=== PATIENT | female | born 1940 | race Caucasian/White ===

== ENCOUNTER 2016-08-07 01:33 | Emergency (ER) | payer MEDICARE, BC ==
[2016-08-07] MEDS ORDERED: Sodium Chloride 0.9% 10 ML Syringe FLUSH PRN (01:46)
[2016-08-07] MEDS ORDERED: Sodium Chloride 0.9% 1,000 ML IV ONE (01:46)
[2016-08-07] MEDS ORDERED: Albuterol/Ipratropium 3.0-0.5 MG/3 ML Neb Soln NEB ONE (02:08)
[2016-08-07] MEDS ORDERED: methylPREDNISolone Sodium Succinate 125 MG/2 ML SDV IVPUSH ONE (02:09)
--- NOTE | 2016-08-07 02:16 | EDM.PDOC ---
ED HPI GENERAL MEDICAL PROBLEM - General Chief Complaint: Respiratory Problem Stated Complaint: Dyspnea, Respiratory distress Time Seen by Provider: 08/07/16 01:44 Source of Information: Reports: Patient, EMS Notes Reviewed, Family, RN, RN Notes Reviewed History Limitations: Reports: No Limitations - History of Present Illness INITIAL COMMENTS - FREE TEXT/NARRATIVE: Patient is brought to the ED at [facility] via EMS for worsening SOB. Patient states her symptoms started earlier today. She did try nebs at home and hour ago without and improvement of her SOB. EMS was then called. Upon arrival, patient was very tachypnic and had oxygen saturations around 77%. BiPAP was started per EMS, which improved her oxygen levels. Patient has a long standing history of CHF and COPD with episode of acute respiratory failure due to hypercapnea. Unknown when her most recent event occurred. Patient currently denies any chest pain. No focal neurological deficits. Patient states she feels nauseated off/on. No vomiting or diarrhea. No recent URI. No fevers or chills. Onset: Today, Gradual Onset Date: 08/07/16 Treatments ACCOUNTING ADVISORY SERVICES MANAGER: Reports: See EMS Report, Other (see below) Other Treatments ACCOUNTING ADVISORY SERVICES MANAGER: duonebs - Related Data Allergies Allergy/AdvReac Type Severity Reaction Status Date / Time amoxicillin Allergy Cannot Verified 08/07/16 02:11 Remember codeine AdvReac Renal Verified 08/07/16 02:11 Insufficiency naproxen AdvReac Renal Verified 08/07/16 02:11 Failure amoxicillin Allergy Cannot Uncoded 08/07/16 02:11 Remember Home Meds: Home Meds Clopidogrel Bisulfate [Clopidogrel] 75 mg PO DAILY 10/16/13 [History] Febuxostat [Uloric] 40 mg PO DAILY 10/16/13 [History] Pantoprazole Sodium 40 mg PO DAILY 10/16/13 [History] Methyl Salicylate/Menthol [Muscle Rub Cream] 1 applic TOP ASDIRECTED PRN [History] Nystatin 1 applic TOP BID 04/25/14 [History] Cetirizine [ZyrTEC] 10 mg PO DAILY 02/05/15 [History] Potassium Chloride 20 meq PO DAILY 02/14/15 [History] Acetaminophen [Tylenol] 650 mg PO Q4H PRN #0 tablet 02/27/15 [Rx] Hydroxychloroquine [Plaquenil] 400 mg PO DAILY tablet 02/27/15 [Rx] Levothyroxine 75 mcg PO ACBREAKFAST tablet 02/27/15 [Rx] Nitroglycerin [Nitrostat] 0.4 mg SL ASDIRECTED PRN #0 tab.sl 02/27/15 [Rx] Sertraline [Zoloft] 100 mg PO DAILY tablet 02/27/15 [Rx] Albuterol [Proventil HFA] 2 inh INH Q6H PRN 08/09/15 [History] Albuterol/Ipratropium [DuoNeb 3.0-0.5 MG/3 ML] 3 ml INH Q4H PRN 08/09/15 [ History] Albuterol/Ipratropium [DuoNeb 3.0-0.5 MG/3 ML] 3 ml INH QID 08/09/15 [History] Aspirin [Halfprin] 81 mg PO DAILY 08/09/15 [History] Budesonide [Pulmicort] 0.5 mg INH BID 08/09/15 [History] Cholecalciferol (Vitamin D3) [Vitamin D3] 2,000 unit PO DAILY 08/09/15 [History] Digoxin 125 mcg PO Q48H 08/09/15 [History] Docusate Sodium/Sennosides [Senna Plus] 2 tab PO BID 08/09/15 [History] Fluticasone Propionate [Flonase] 2 sprays NASBOTH BID 08/09/15 [History] Furosemide 60 mg PO BIDDIURETIC 08/09/15 [History] Insulin Glarg,Human.Rec.Analog [LantUS Solostar] 15 units SQ Q12H 08/09/15 [ History] Iron Aspgly&PS/B12/C/Ca/FA/Suc [Niferex-150 Forte] 1 cap PO DAILY 08/09/15 [ History] Nystatin/Triamcin [Nystatin-Triamcinolone Cream] 1 applic TOP BID 08/09/15 [ History] oxyCODONE 5 mg PO Q6H PRN 08/09/15 [History] rOPINIRole [Requip] 0.25 mg PO TID 08/09/15 [History] Acetaminophen [Tylenol] 650 mg PO Q6H PRN #0 tablet 08/30/15 [Rx] Benzocaine/Cetylpyrd/Menthol [Cepacol Sore Throat] 1 lozenge MUCMEM Q4HR PRN #0 aimee 08/30/15 [Rx] Diltiazem [Cardizem CD] 120 mg PO DAILY #30 cap.cd 08/30/15 [Rx] Menthol/Methyl Salicylate [Icy Hot Cream] 85 gm TOP QID PRN #0 tube 08/30/15 [Rx ] Polyethylene Glycol 3350 [MiraLAX] 17 gm PO DAILY PRN #0 packet 08/30/15 [Rx] oxyCODONE 5 mg PO Q6H PRN #120 tablet 08/30/15 [Rx] Past Medical History HEENT History: Reports: Hard of Hearing, Sinusitis, Other (See Below) Other HEENT History: dysphagia Cardiovascular History: Reports: Arrhythmia, CAD, Heart Failure, High Cholesterol, Hypertension, OR Respiratory History: Reports: COPD, Sleep Apnea, SOB Gastrointestinal History: Reports: GERD, GI Bleed Genitourinary History: Reports: Renal Disease 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: Musculoskeletal History: Reports: Arthritis, Fracture, Gout Other Musculoskeletal History: HX FX b ankles Neurological History: Reports: Migraines Psychiatric History: Reports: Anxiety, Depression Endocrine/Metabolic History: Reports: Diabetes, Type II, Hypothyroidism, Obesity /BMI 30+ Hematologic History: Reports: Anemia, Bleeding Disorder Dermatologic History: Reports: Eczema Other Dermatologic History: posterior lower head - Past Surgical History Cardiovascular Surgical History: Reports: Coronary Artery Stent Social & Family History - Family History Family Medical History: Noncontributory HEENT: Reports: None Cardiac: Reports: None Musculoskeletal: Reports: Arthritis Endocrine/Metabolic: Reports: Diabetes, Type I Hematologic: Reports: None Immunologic: Reports: None Oncologic: Reports: Lung - Tobacco Use Smoking Status *Q: Former Smoker Years of Tobacco use: 10 Packs/Tins Daily: 1.5 Used Tobacco, but Quit: No Month Tobacco Last Used: 0 Second Hand Smoke Exposure: No - Caffeine Use Caffeine Use: Reports: Coffee - Alcohol Use Days Per Week of Alcohol Use: 0 - Recreational Drug Use Recreational Drug Use: No ED ROS GENERAL - Review of Systems Review Of Systems: See Below Constitutional: Denies: Fever, Chills, Weakness HEENT: Reports: No Symptoms Respiratory: Reports: Shortness of Breath. Denies: Cough, Sputum Cardiovascular: Reports: Dyspnea on Exertion, Edema, Lightheadedness, Orthopnea. Denies: Chest Pain GI/Abdominal: Reports: Nausea. Denies: Abdominal Pain, Diarrhea, Vomiting Skin: Reports: No Symptoms Neurological: Reports: No Symptoms. Denies: Dizziness, Headache, Numbness, Paresthesia, Tingling ED EXAM, GENERAL - Physical Exam Exam: See Below Exam Limited By: No Limitations General Appearance: Alert, Moderate Distress, Obese Head: Atraumatic, Normocephalic Neck: Supple Respiratory/Chest: Decreased Breath Sounds Cardiovascular: Tachycardia, Other (+3 bilateral lower extremity edema; distant heart tones) Peripheral Pulses: 2+: Radial (L), Radial (R) GI/Abdominal: Soft, Non-Tender, Abnormal Bowel Sounds (Hypoactive) Extremities: Pedal Edema (bilateral +3) Neurological: Alert, Oriented Skin Exam: Warm, Dry, Intact, Normal Color, No Rash EKG INTERPRETATION EKG Date: 08/07/16 Time: 02:35 Rhythm: A-Fib Rate (Beats/Min): 117 [place]: Normal P-Wave: Absent QRS: Normal ST-T: Normal QT: Normal DC/PQ Interval: Absent Comparison: Change From Previous EKG EKG Interpretation Comments: 1. Atrial Fibrillation with rapid ventricular response 2. Low QRS voltage in precordial leads 3. Possible anterior OR, probably old Course - Vital Signs Last Recorded V/S: Last Vital Signs Temp 36.6 C 08/07/16 01:45 Pulse 124 H 08/07/16 02:00 Resp 21 H 08/07/16 03:00 BP 117/61 08/07/16 02:44 Pulse Ox 98 08/07/16 03:00 - Orders/Labs/Meds Orders: Active Orders 24 hr Category Date Time Status EKG 12 Lead [EKG Documentation Completion] [RC] STAT Care 08/07/16 01:47 Active RT Aerosol Therapy [RC] ASDIRECTED Care 08/07/16 02:08 Active Chest 1V Frontal [CR] Stat Exams 08/07/16 01:45 Taken Diltiazem Med 08/07/16 03:19 Once 5 mg IVPUSH ONETIME ONE Furosemide [Lasix] Med 08/07/16 03:19 Once 20 mg IVPUSH NOW ONE Sodium Chloride 0.9% [Saline Flush] Med 08/07/16 01:46 Active 10 ml FLUSH ASDIRECTED PRN Peripheral IV Insertion Adult [OM.PC] Routine Oth 08/07/16 01:46 Ordered Medication Orders Diltiazem HCl (Diltiazem) 5 mg IVPUSH ONETIME ONE Stop: 08/07/16 03:20 Sodium Chloride (Saline Flush) 10 ml FLUSH ASDIRECTED PRN PRN Reason: Keep Vein Open Labs: Laboratory Tests 08/07/16 08/07/16 08/07/16 Range/Units 01:59 01:59 01:59 WBC 5.6 (4.0-10.0) x10^3/uL RBC 3.44 L (4.00-5.50) x10^6/uL Hgb 9.9 L (12.0-16.0) g/dL Hct 33.3 (33.0-47.0) % MCV 96.8 H D (78.0-93.0) fL MCH 28.8 (26.0-32.0) pg MCHC 29.7 L (32.0-36.0) g/dL RDW Coeff of Srinivasan 16.7 H (10.0-15.0) % Plt Count 154 (130-400) x10^3/uL Add Manual Diff Yes Neutrophils % (Manual) 72 (50-80) % Band Neutrophils % 1 (0-6) % Lymphocytes % (Manual) 14 L (25-50) % Monocytes % (Manual) 10 (2-11) % Eosinophils % (Manual) 3 (0-4) % Platelet Estimate Adequate Polychromasia Rare Anisocytosis 2+ moderate H Macrocytosis 1+ slight H Spherocytes Rare Ovalocytes 1+ slight H POC ABG pH (7.35-7.45) POC ABG pCO2 (35-45) mmHG POC ABG pO2 (80-105) mmHG POC ABG HCO3 (22-26) mmol/L POC ABG Total CO2 (23-27) mmol/L POC ABG O2 Sat (95-98) % POC ABG Base Excess (-2-3) mmol/L POC FiO2 Sodium 142 (136-145) mmol/L Potassium 4.3 (3.5-5.1) mmol/L Chloride 98 (98-107) mmol/L Carbon Dioxide 42 H (21-32) mmol/L BUN 51 H (7-18) mg/dL Creatinine 2.9 H (0.55-1.02) mg/dL Est Cr Clr Drug Dosing TNP Estimated GFR (MDRD) 16 Glucose 182 H (74-106) mg/dL Lactic Acid 0.9 (0.4-2.0) mmol/L Calcium 8.6 (8.5-10.1) mg/dL Phosphorus 4.6 (2.6-4.7) mg/dL Magnesium 1.8 (1.8-2.4) mg/dL Creatine Kinase 99 (26-192) U/L Creatine Kinase Index 2.2 (0.0-4.0) % CK-MB (CK-2) 2.2 (0.0-3.6) ng/mL Troponin I < 0.017 (<=0.056) ng/mL B-Natriuretic Peptide 1759 H (<=450) pg/mL POC Result Comm 08/07/16 Range/Units 02:48 WBC (4.0-10.0) x10^3/uL RBC (4.00-5.50) x10^6/uL Hgb (12.0-16.0) g/dL Hct (33.0-47.0) % MCV (78.0-93.0) fL MCH (26.0-32.0) pg MCHC (32.0-36.0) g/dL RDW Coeff of Srinivasan (10.0-15.0) % Plt Count (130-400) x10^3/uL Add Manual Diff Neutrophils % (Manual) (50-80) % Band Neutrophils % (0-6) % Lymphocytes % (Manual) (25-50) % Monocytes % (Manual) (2-11) % Eosinophils % (Manual) (0-4) % Platelet Estimate Polychromasia Anisocytosis Macrocytosis Spherocytes Ovalocytes POC ABG pH 7.404 (7.35-7.45) POC ABG pCO2 70 H* (35-45) mmHG POC ABG pO2 150 H (80-105) mmHG POC ABG HCO3 44 H (22-26) mmol/L POC ABG Total CO2 46 H (23-27) mmol/L POC ABG O2 Sat 99 H (95-98) % POC ABG Base Excess 19 H (-2-3) mmol/L POC FiO2 0.60 Sodium (136-145) mmol/L Potassium (3.5-5.1) mmol/L Chloride (98-107) mmol/L Carbon Dioxide (21-32) mmol/L BUN (7-18) mg/dL Creatinine (0.55-1.02) mg/dL Est Cr Clr Drug Dosing Estimated GFR (MDRD) Glucose (74-106) mg/dL Lactic Acid (0.4-2.0) mmol/L Calcium (8.5-10.1) mg/dL Phosphorus (2.6-4.7) mg/dL Magnesium (1.8-2.4) mg/dL Creatine Kinase (26-192) U/L Creatine Kinase Index (0.0-4.0) % CK-MB (CK-2) (0.0-3.6) ng/mL Troponin I (<=0.056) ng/mL B-Natriuretic Peptide (<=450) pg/mL POC Result Comm Called critical res Meds: Medications Generic Name Dose Route Start Last Admin Trade Name Freq PRN Reason Stop Dose Admin Diltiazem HCl 5 mg 08/07/16 03:19 Diltiazem IVPUSH 08/07/16 03:20 ONETIME ONE Sodium Chloride 10 ml 08/07/16 01:46 Saline Flush FLUSH ASDIRECTED PRN Keep Vein Open Discontinued Medications Generic Name Dose Route Start Last Admin Trade Name Freq PRN Reason Stop Dose Admin Albuterol/Ipratropium 3 ml 08/07/16 02:08 08/07/16 02:17 Duoneb 3.0-0.5 Mg/3 Ml NEB 08/07/16 02:09 3 ml ONETIME ONE Administration Sodium Chloride 1,000 mls @ 999 mls/hr 08/07/16 01:46 08/07/16 02:25 Normal Saline IV 08/07/16 02:46 999 mls/hr ONETIME ONE Administration Methylprednisolone Sodium Succinate 125 mg 08/07/16 02:09 08/07/16 02:28 Solu-Medrol IVPUSH 08/07/16 02:10 125 mg ONETIME ONE Administration Departure - Departure Time of Disposition: 03:20 Disposition: DC/Tfer to Acute Hospital 02 Condition: Fair Clinical Impression: Hypoxia Respiratory failure with hypercapnia Qualifiers: Chronicity: acute on chronic Qualified Code(s): J96.22 - Acute and chronic respiratory failure with hypercapnia COPD (chronic obstructive pulmonary disease) Qualifiers: Chronic bronchitis type: unspecified - Discharge Information Forms: Interfacility Transfer [facility] ED Communication - ED Communication Date/Time Date: 08/07/16 Time Called: 03:08 - Discussed Case With (1) Discussed Case With (1): Admitting Provider (Dr. Whitney, Hospitalist) - Conversation Summary Admitting Provider Agreed to Patient's Admission: Yes Patient Aware of Amendments fo Care Plan: Yes Patient's POA/Guardian Aware of Amendments to Care Plan: Yes Summary Comment: Patient will be [facility]. Accepting provider is Dr. Whitney. Report given. All questions answered. - Problem List Review Problem List Initiated/Reviewed/Updated: Yes - My Orders Last 24 Hours: My Active Orders 08/07/16 01:45 Chest 1V Frontal [CR] Stat 08/07/16 01:46 Sodium Chloride 0.9% [Saline Flush] 10 ml FLUSH ASDIRECTED PRN Peripheral IV Insertion Adult [OM.PC] Routine 08/07/16 01:47 EKG 12 Lead [EKG Documentation Completion] [RC] STAT 08/07/16 02:08 RT Aerosol Therapy [RC] ASDIRECTED 08/07/16 03:19 Diltiazem 5 mg IVPUSH ONETIME ONE Furosemide [Lasix] 20 mg IVPUSH NOW ONE - Assessment/Plan Last 24 Hours: My Active Orders 08/07/16 01:45 Chest 1V Frontal [CR] Stat 08/07/16 01:46 Sodium Chloride 0.9% [Saline Flush] 10 ml FLUSH ASDIRECTED PRN Peripheral IV Insertion Adult [OM.PC] Routine 08/07/16 01:47 EKG 12 Lead [EKG Documentation Completion] [RC] STAT 08/07/16 02:08 RT Aerosol Therapy [RC] ASDIRECTED 08/07/16 03:19 Diltiazem 5 mg IVPUSH ONETIME ONE Furosemide [Lasix] 20 mg IVPUSH NOW ONE
[2016-08-07 02:44] LABS: CHLORIDE,CL 98 mmol/L (98-107); SODIUM,NA 142 mmol/L (136-145)
[2016-08-07 03:11] VITALS: BP 117/61
[2016-08-07] MEDS ORDERED: Furosemide 40 MG/4 ML VIAL IVPUSH ONE (03:19)
[2016-08-07] MEDS ORDERED: Diltiazem 25 MG/5 ML SDV IVPUSH ONE (03:19)
== END 2016-08-07 03:55 | disposition short-term general hospital (02) ==
LOC: VM.ED 01:33
DX: J96.22 Acute and chronic respiratory failure with hypercapnia (principal); J44.9 Chronic obstructive pulmonary disease, unspecified; I11.0 Hypertensive heart disease with heart failure; I50.9 Heart failure, unspecified; I25.10 Atherosclerotic heart disease of native coronary artery without angina pectoris; I25.2 Old myocardial infarction; E78.00 Pure hypercholesterolemia, unspecified; G47.30 Sleep apnea, unspecified; K21.9 Gastro-esophageal reflux disease without esophagitis; M19.90 Unspecified osteoarthritis, unspecified site; G43.909 Migraine, unspecified, not intractable, without status migrainosus; F41.9 Anxiety disorder, unspecified; F32.9 Major depressive disorder, single episode, unspecified; E11.9 Type 2 diabetes mellitus without complications; E03.9 Hypothyroidism, unspecified; Z95.5 Presence of coronary angioplasty implant and graft; Z87.891 Personal history of nicotine dependence; Z79.82 Long term (current) use of aspirin; Z79.02 Long term (current) use of antithrombotics/antiplatelets; Z79.4 Long term (current) use of insulin; Z79.899 Other long term (current) drug therapy; Z88.1 Allergy status to other antibiotic agents; Z88.5 Allergy status to narcotic agent; Z88.8 Allergy status to other drugs, medicaments and biological substances
CPT/HCPCS: 36415; 36600; 51702; 71010; 80048; 82550; 82553; 82803; 83605; 83735; 83880; 84100; 84484; 85025; 93005; 96365; 96375; 99285; J1940; J2930; J7030; 99284-GF; J3490

== ENCOUNTER 2016-08-13 10:13 | Inpatient (IN) | payer MEDICARE, BC ==
[2016-08-13] MEDS: Acetaminophen 325 MG Tab PO PRN ×3 (17:18→23:35)
[2016-08-13] MEDS: Insuln Aspart Prot/Insulin Aspart 100 Units/ML 3 ML FlexPen SUBCUT SCH (17:20)
[2016-08-13] MEDS: oxyCODONE 5 MG Tab PO PRN ×2 (19:29→23:32)
[2016-08-13] MEDS ORDERED: Albuterol 8 GM Inhaler INH PRN (22:54)
[2016-08-13] MEDS ORDERED: Nystatin Crm 30 GM Tube TOP PRN (22:54)
[2016-08-13] MEDS ORDERED: Nitroglycerin 0.4 MG Tab.SL SL PRN (22:54)
[2016-08-13] MEDS ORDERED: Menthol/Methyl Salicylate 85 GM Tube TOP PRN (22:54)
[2016-08-13] MEDS ORDERED: oxyCODONE 5 MG Tab PO PRN (23:01)
[2016-08-13] MEDS: Albuterol/Ipratropium 3.0-0.5 MG/3 ML Neb Soln NEB PRN (23:20)
[2016-08-13] MEDS: guaiFENesin 600 MG Tab.ER PO SCH (23:36)
[2016-08-13] MEDS: Fluticasone Propionate Nasal Spray 16 GM Bottle NASBOTH SCH (23:46)
[2016-08-13] MEDS: Betamethasone Dipropionate/Clotrimazole 0.05-1% Crm 15 GM Tube TOP SCH (23:47)
[2016-08-14] MEDS: Betamethasone Dipropionate/Clotrimazole 0.05-1% Crm 15 GM Tube TOP SCH ×4 (00:41→19:43)
[2016-08-14] MEDS: oxyCODONE 5 MG Tab PO PRN ×3 (04:37→14:52)
[2016-08-14] MEDS: Pantoprazole 40 MG Tab.CR PO SCH (06:13)
[2016-08-14] MEDS: Levothyroxine 75 MCG Tab PO SCH (06:13)
[2016-08-14] MEDS ORDERED: Albuterol/Ipratropium 3.0-0.5 MG/3 ML Neb Soln INH SCH (07:00)
[2016-08-14] MEDS ORDERED: Potassium Chloride 20 MEQ Tab.ER PO SCH (08:00)
[2016-08-14] MEDS ORDERED: Insuln Aspart Prot/Insulin Aspart 100 Units/ML 3 ML FlexPen SUBCUT SCH (08:00)
[2016-08-14] MEDS ORDERED: [UNRECOGNIZED DRUG - OTHER] PO SCH (08:00)
[2016-08-14] MEDS ORDERED: Hydroxychloroquine 200 MG Tab PO SCH (08:00)
[2016-08-14] MEDS ORDERED: rOPINIRole 0.5 MG Tab PO SCH (08:00)
[2016-08-14] MEDS ORDERED: Furosemide 40 MG Tab PO SCH (08:00)
[2016-08-14] MEDS ORDERED: Diltiazem 120 MG Cap.CD PO SCH (08:00)
[2016-08-14] MEDS ORDERED: MICONAZOLE 2% TOP PRN (09:30)
[2016-08-14] MEDS: Insuln Aspart Prot/Insulin Aspart 100 Units/ML 3 ML FlexPen SUBCUT SCH ×3 (09:47→18:12)
[2016-08-14] MEDS: guaiFENesin 600 MG Tab.ER PO SCH ×3 (09:47→19:43)
[2016-08-14] MEDS: Fluticasone Propionate Nasal Spray 16 GM Bottle NASBOTH SCH (09:47)
[2016-08-14] MEDS: Hydroxychloroquine 200 MG Tab PO SCH ×3 (10:38→19:43)
[2016-08-14] MEDS: Polyethylene Glycol 3350 Powder 17 GM Packet PO SCH (10:38)
[2016-08-14] MEDS: Torsemide 20 MG Tab PO SCH (10:38)
[2016-08-14] MEDS: Cholecalciferol (Vitamin D3) 1,000 Unit Tab PO SCH (10:38)
[2016-08-14] MEDS: Metoprolol Succinate 25 MG Tab.ER PO SCH (10:39)
[2016-08-14] MEDS: Digoxin 125 MCG Tab PO SCH (10:40)
[2016-08-14] MEDS: Aspirin 81 MG Tab.EC PO SCH (10:40)
[2016-08-14] MEDS: Iron Polysaccharides Complex 150 MG Cap PO SCH ×2 (10:40→11:33)
[2016-08-14] MEDS: Potassium Chloride 10 MEQ Tab.ER PO SCH (10:41)
[2016-08-14] MEDS: Sertraline 100 MG Tab PO SCH (10:41)
[2016-08-14] MEDS: Loratadine 10 MG Tab PO SCH (10:41)
[2016-08-14] MEDS: Clopidogrel 75 MG Tab PO SCH (10:41)
[2016-08-14] MEDS: rOPINIRole 0.5 MG Tab PO SCH ×2 (10:42→14:50)
[2016-08-14] MEDS ORDERED: Fluticasone Propionate Nasal Spray 16 GM Bottle NASBOTH SCH (12:15)
--- NOTE | 2016-08-14 12:54 | PCM.HP ---
H&P History of Present Illness - General Date of Service: 08/14/16 Admit Problem/Dx: Admission Diagnosis/Problem Admission Diagnosis/Problem CHF, Congestive heart failure Source of Information: Patient, Old Records - History of Present Illness Initial Comments - Free Text/Narative: 76-year-old female admitted to swing bed following an acute stay at [facility] for treatment of acute respiratory failure. Patient has known chronic respiratory failure with hypoxia. This acute exacerbation was thought secondary to her congestive heart failure and atrial fibrillation with rapid ventricular response. Bilateral Lower Leg Pain Score (Numeric/FACES): 4 - Related Data Allergies/Adverse Reactions: Allergies Allergy/AdvReac Type Severity Reaction Status Date / Time amoxicillin Allergy Cannot Verified 08/07/16 02:11 Remember codeine AdvReac Renal Verified 08/07/16 02:11 Insufficiency naproxen AdvReac Renal Verified 08/07/16 02:11 Failure amoxicillin Allergy Cannot Uncoded 08/07/16 02:11 Remember Home Medications: Home Meds Clopidogrel Bisulfate [Clopidogrel] 75 mg PO DAILY 10/16/13 [History] Pantoprazole Sodium 40 mg PO DAILY 10/16/13 [History] Methyl Salicylate/Menthol [Muscle Rub Cream] 1 applic TOP ASDIRECTED PRN [History] Nystatin 1 applic TOP BID PRN 04/25/14 [History] Potassium Chloride 10 meq PO DAILY 02/14/15 [History] Levothyroxine 75 mcg PO ACBREAKFAST tablet 02/27/15 [Rx] Nitroglycerin [Nitrostat] 0.4 mg SL ASDIRECTED PRN #0 tab.sl 02/27/15 [Rx] Sertraline [Zoloft] 100 mg PO DAILY tablet 02/27/15 [Rx] Aspirin [Halfprin] 81 mg PO DAILY 08/09/15 [History] Cholecalciferol (Vitamin D3) [Vitamin D3] 2,000 unit PO DAILY 08/09/15 [History] Digoxin 125 mcg PO DAILY 08/09/15 [History] Docusate Sodium/Sennosides [Senna Plus] 2 tab PO DAILY PRN 08/09/15 [History] oxyCODONE 10 mg PO Q4H PRN 08/09/15 [History] rOPINIRole [Requip] 0.5 mg PO BID@,08/09/15 [History] Acetaminophen [Tylenol] 650 mg PO Q4HR PRN 08/13/16 [History] Albuterol/Ipratropium [DuoNeb 3.0-0.5 MG/3 ML] 3 ml NEB Q4HR PRN 08/13/16 [ History] Calcium Carbonate [Tums] 500 mg PO TID PRN 08/13/16 [History] Clotrimazole/Betamethasone Dip [Lotrisone Cream] 1 applicful TP BID 08/13/16 [ History] Insuln Asp Prot/Insulin Aspart [NovoLOG Mix 70-30] 12 unit SUBCUT BIDMEALS 08/13 [History] Iron Aspgly&PS/B12/C/Ca/FA/Suc [Niferex-150 Forte] 1 cap PO DAILY 08/13/16 [ History] Loratadine [Claritin] 10 mg PO DAILY 08/13/16 [History] Metolazone [Zaroxolyn] 5 mg PO Q72H 08/13/16 [History] Metoprolol Succinate [Toprol XL] 25 mg PO DAILY 08/13/16 [History] Polyethylene Glycol 3350 [MiraLAX] 17 gm PO DAILY 08/13/16 [History] Carbidopa/Levodopa [Sinemet 25-100 mg Tablet] 1 each PO BEDTIME 08/14/16 [ History] Hydroxychloroquine Sulfate [Plaquenil] 200 mg PO TID 08/14/16 [History] Torsemide 20 mg PO DAILY 08/14/16 [History] Past Medical History HEENT History: Reports: Hard of Hearing, Sinusitis, Other (See Below) Other HEENT History: dysphagia Cardiovascular History: Reports: Afib, Arrhythmia, CAD, Heart Failure, High Cholesterol, Hypertension, [place], SOB on Exertion Respiratory History: Reports: COPD, Sleep Apnea, SOB Gastrointestinal History: Reports: GERD, GI Bleed Genitourinary History: Reports: Renal Disease 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: Musculoskeletal History: Reports: Arthritis, Fracture, Gout Other Musculoskeletal History: HX FX b ankles Neurological History: Reports: Migraines Psychiatric History: Reports: Anxiety, Depression Endocrine/Metabolic History: Reports: Diabetes, Type II, Hypothyroidism, Obesity /BMI 30+ Hematologic History: Reports: Anemia, Bleeding Disorder, Iron Deficiency Dermatologic History: Reports: Eczema, Psoriasis Other Dermatologic History: posterior lower head - Past Surgical History Cardiovascular Surgical History: Reports: Coronary Artery Stent Respiratory Surgical History: Reports: None GI Surgical History: Reports: None Musculoskeletal Surgical History: Reports: None Social & Family History - Family History Family Medical History: Noncontributory HEENT: Reports: None Cardiac: Reports: None Musculoskeletal: Reports: Arthritis Endocrine/Metabolic: Reports: Diabetes, Type I Hematologic: Reports: None Immunologic: Reports: None Oncologic: Reports: Lung - Tobacco Use Smoking Status *Q: Former Smoker Years of Tobacco use: 10 Packs/Tins Daily: 1.5 Used Tobacco, but Quit: Yes Month Tobacco Last Used: Second Hand Smoke Exposure: No - Caffeine Use Caffeine Use: Reports: Coffee - Alcohol Use Days Per Week of Alcohol Use: 0 - Recreational Drug Use Recreational Drug Use: No H&P Review of Systems - Review of Systems: Review Of Systems: See Below General: Denies: Fever, Chills HEENT: Reports: No Symptoms Pulmonary: Reports: Shortness of Breath. Denies: Cough, Hemoptysis Cardiovascular: Reports: Dyspnea on Exertion, Edema. Denies: Chest Pain Gastrointestinal: Denies: Abdominal Pain, Constipation, Diarrhea, Nausea, Vomiting Genitourinary: Denies: Dysuria Musculoskeletal: Reports: Neck Pain, Back Pain, Joint Pain Skin: Denies: Rash Psychiatric: Reports: No Symptoms Neurological: Reports: No Symptoms Hematologic/Lymphatic: Reports: No Symptoms Immunologic: Reports: No Symptoms Exam - Exam Exam: See Below - Vital Signs Vital Signs: Last Vital Signs Temp 36.4 C 08/14/16 10:00 Pulse 100 08/14/16 10:39 Resp 20 08/14/16 10:00 BP 104/46 L 08/14/16 10:39 Pulse Ox 92 L 08/14/16 10:00 Weight: 110.132 kg - Exam Quality Assessment: Supplemental Oxygen General: Alert, Oriented HEENT: Conjunctiva Clear, Mucosa Moist & Sundown Neck: Supple Lungs: Decreased Breath Sounds, Rhonchi Cardiovascular: Irregular Rhythm Abdomen: Normal Bowel Sounds, Soft Skin: Warm, Dry Neurological: Cranial Nerves Intact Neuro Extensive - Mental Status: Alert, Disorientation to Person Neuro Extensive - Motor, Sensory, Reflexes: CN II-XII Intact Psychiatric: Alert, Normal Affect - Patient Data Lab Results Last 24 hrs: Laboratory Results - last 24 hr 08/13/16 08/14/16 Range/Units 17:16 06:16 POC Glucose 129 H 110 H (74-106) mg/dL *Q Meaningful Use (ADM) - VTE *Q VTE Criteria *Q: - Stroke *Q Stroke Criteria *Q: - AMI *Q AMI Criteria *Q: - Problem List (1) Respiratory failure with hypercapnia SNOMED Code(s): 868248733 ICD Code: J96.92 - RESPIRATORY FAILURE, UNSPECIFIED WITH HYPERCAPNIA Status : Chronic Current Visit: No Qualifiers: Chronicity: acute on chronic Qualified Code(s): J96.22 - Acute and chronic respiratory failure with hypercapnia (2) A-fib SNOMED Code(s): 96881438 ICD Code: I48.91 - UNSPECIFIED ATRIAL FIBRILLATION Status: Chronic Current Visit: No Qualifiers: Atrial fibrillation type: chronic Qualified Code(s): I48.2 - Chronic atrial fibrillation (3) CHF (congestive heart failure) SNOMED Code(s): 58133057 ICD Code: I50.9 - HEART FAILURE, UNSPECIFIED Status: Chronic Current Visit: No Qualifiers: Congestive heart failure type: diastolic Congestive heart failure chronicity: chronic Qualified Code(s): I50.32 - Chronic diastolic (congestive ) heart failure (4) COPD (chronic obstructive pulmonary disease) SNOMED Code(s): 15595237 ICD Code: J44.9 - CHRONIC OBSTRUCTIVE PULMONARY DISEASE, UNSPECIFIED Status : Chronic Priority: High Current Visit: No Problem List Initiated/Reviewed/Updated: Yes Orders Last 24hrs: Active Orders 24 hr Category Date Time Status Admission Status [Patient Status] [ADT] Routine ADT 08/13/16 14:18 Active Accu Check [Blood Glucose Check, Bedside] [RC] 17 Care 08/13/16 16:47 Active Oxygen Therapy Adult [Oxygen Therapy, ED] [RC] .PRN Care 08/13/16 16:01 Active RT Aerosol Therapy [RC] .PRN Care 08/13/16 16:10 Active Consult to Occupational Therapy [OT Evaluation and Cons 08/13/16 16:02 Active Treatment] [CONS] Routine Consult to Physical Therapy [PT Evaluation and Cons 08/13/16 16:01 Active Treatment] [CONS] Routine 2 Gram Sodium Diet [DIET] Diet 08/13/16 Dinner Active [employer] Diet [DIET] Diet 08/13/16 Dinner Active Acetaminophen [Tylenol] Med 08/13/16 22:54 Active 650 mg PO Q4HR PRN Albuterol/Ipratropium [DuoNeb 3.0-0.5 MG/3 ML] Med 08/13/16 16:05 Active 3 ml NEB Q4HRRT PRN Aspirin [Halfprin] Med 08/14/16 08:00 Active 81 mg PO DAILY Betamethasone/Clotrimazole [Lotrisone] Med 08/13/16 23:00 Active 0 gm TOP BID Calcium Carbonate [Tums Extra Strength] Med 08/13/16 22:54 Active 750 mg PO TID PRN Carbidopa/Levodopa [Sinemet 25-100 mg] Med 08/14/16 20:00 Active 1 tab PO BEDTIME Cholecalciferol (Vitamin D3) [Vitamin D3] Med 08/14/16 08:00 Active 2,000 units PO DAILY Clopidogrel [Plavix] Med 08/14/16 08:00 Active 75 mg PO DAILY Digoxin [Lanoxin] Med 08/14/16 08:00 Active 125 mcg PO DAILY Docusate Sodium/Sennosides [Senna Plus] Med 08/14/16 08:45 Active 2 tab PO DAILY PRN Febuxostat [Uloric] Med 08/14/16 08:00 Pending 40 mg PO DAILY Fluticasone Propionate [Flonase] Med 08/14/16 12:15 Active 0 gm NASBOTH DAILY Hydroxychloroquine [Plaquenil] Med 08/14/16 09:15 Active 200 mg PO TID Insuln Asp Prot/Insulin Aspart [NovoLOG Mix 70-30] Med 08/14/16 18:00 Active 12 unit SUBCUT BIDMEALS Iron Polysaccharides Complex [Ferrex 150] Med 08/14/16 12:00 Active 150 mg PO DAILY Levothyroxine Med 08/14/16 07:00 Active 75 mcg PO ACBREAKFAST Loratadine [Claritin] Med 08/14/16 08:00 Active 10 mg PO DAILY Menthol/Methyl Salicylate [Icy Hot Cream] Med 08/13/16 22:54 Active 1 gm TOP ASDIRECTED PRN Metolazone [Zaroxolyn] Med 08/16/16 08:00 Active 5 mg PO Q3D Metoprolol Succinate [Toprol XL] Med 08/14/16 08:00 Active 25 mg PO DAILY Miconazole [Desenex 2%] Med 08/14/16 09:30 Active 0 gm TOP BID PRN Nitroglycerin [Nitrostat] Med 08/13/16 22:54 Active 0.4 mg SL ASDIRECTED PRN Pantoprazole [ProTONIX] Med 08/14/16 07:00 Active 40 mg PO ACBREAKFAST Polyethylene Glycol 3350 [MiraLAX] Med 08/14/16 08:00 Active 17 gm PO DAILY Potassium Chloride [Klor-Con 10] Med 08/14/16 09:26 Active 10 meq PO DAILY Sertraline [Zoloft] Med 08/14/16 08:00 Active 100 mg PO DAILY Torsemide [Demadex] Med 08/14/16 09:30 Active 20 mg PO DAILY guaiFENesin [Mucinex] Med 08/14/16 12:15 Active 600 mg PO BID oxyCODONE Med 08/13/16 15:59 Active 10 mg PO Q4H PRN rOPINIRole [Requip] Med 08/14/16 09:30 Active 0.5 mg PO BID@0800,1400 Code Status [Resuscitation Status] Routine Resus Stat 08/14/16 09:48 Ordered Medication Orders Acetaminophen (Tylenol) 650 mg PO Q4HR PRN PRN Reason: pain,headache,fever Last Admin: 08/13/16 23:35 Dose: 650 mg Albuterol/Ipratropium (Duoneb 3.0-0.5 Mg/3 Ml) 3 ml NEB Q4HRRT PRN PRN Reason: Shortness of Breath Last Admin: 08/13/16 23:20 Dose: 3 ml Aspirin (Halfprin) 81 mg PO DAILY [facility] Last Admin: 08/14/16 10:40 Dose: 81 mg Betamethasone/Clotrimazole (Lotrisone) 0 gm TOP BID [facility] Last Admin: 08/14/16 10:43 Dose: 1 applic Admin: 08/14/16 00:44 Dose: Not Given Admin: 08/14/16 00:41 Dose: 1 applic Calcium Carbonate/Glycine (Tums Extra Strength) 750 mg PO TID PRN PRN Reason: Heartburn Carbidopa/Levodopa (Sinemet 25-100 Mg) 1 tab PO BEDTIME [facility] Cholecalciferol (Vitamin D3) 2,000 units PO DAILY [facility] Last Admin: 08/14/16 10:38 Dose: 2,000 units Clopidogrel Bisulfate (Plavix) 75 mg PO DAILY [facility] Last Admin: 08/14/16 10:41 Dose: 75 mg Digoxin (Lanoxin) 125 mcg PO DAILY [facility] Last Admin: 08/14/16 10:40 Dose: 125 mcg Fluticasone Propionate (Flonase) 0 gm NASBOTH DAILY [facility] Guaifenesin (Mucinex) 600 mg PO BID [facility] Last Admin: 08/14/16 12:12 Dose: Hydroxychloroquine Sulfate (Plaquenil) 200 mg PO TID [facility] Last Admin: 08/14/16 11:33 Dose: Not Given Admin: 08/14/16 10:38 Dose: 200 mg Insulin Aspart (Novolog Mix 70-30) 12 unit SUBCUT BIDMEALS [facility] Last Admin: 08/14/16 10:42 Dose: 12 units Levothyroxine Sodium (Levothyroxine) 75 mcg PO ACBREAKFAST [facility] Last Admin: 08/14/16 06:13 Dose: 75 mcg Loratadine (Claritin) 10 mg PO DAILY [facility] Last Admin: 08/14/16 10:41 Dose: 10 mg Methyl Salicylate (Icy Hot Cream) 1 gm TOP ASDIRECTED PRN PRN Reason: Muscle Spasm Metolazone (Zaroxolyn) 5 mg PO Q3D [facility] Metoprolol Succinate (Toprol Xl) 25 mg PO DAILY [facility] Last Admin: 08/14/16 10:39 Dose: 25 mg Miconazole (Desenex 2%) 0 gm TOP BID PRN PRN Reason: rash Nitroglycerin (Nitrostat) 0.4 mg SL ASDIRECTED PRN PRN Reason: Chest Pain Non-Formulary Medication (Febuxostat [Uloric]) 40 mg PO DAILY [facility] Oxycodone HCl (Oxycodone) 10 mg PO Q4H PRN PRN Reason: severe pain Last Admin: 08/14/16 09:26 Dose: 10 mg Admin: 08/14/16 04:37 Dose: 10 mg Admin: 08/13/16 23:32 Dose: 10 mg Admin: 08/13/16 19:29 Dose: 10 mg Pantoprazole Sodium (Protonix) 40 mg PO ACBREAKFAST [facility] Last Admin: 08/14/16 06:13 Dose: 40 mg Polyethylene Glycol (Miralax) 17 gm PO DAILY [facility] Last Admin: 08/14/16 10:38 Dose: 17 gm Polysaccharide Iron Complex (Ferrex 150) 150 mg PO DAILY [facility] Last Admin: 08/14/16 11:33 Dose: Not Given Admin: 08/14/16 10:40 Dose: 150 mg Potassium Chloride (Klor-Con 10) 10 meq PO DAILY [facility] Last Admin: 08/14/16 10:41 Dose: 10 meq Ropinirole HCl (Requip) 0.5 mg PO BID@0800,1400 [facility] Last Admin: 08/14/16 10:42 Dose: 0.5 mg Senna/Docusate Sodium (Senna Plus) 2 tab PO DAILY PRN PRN Reason: constipation Sertraline HCl (Zoloft) 100 mg PO DAILY [facility] Last Admin: 08/14/16 10:41 Dose: 100 mg Torsemide (Demadex) 20 mg PO DAILY [facility] Last Admin: 08/14/16 10:38 Dose: 20 mg Assessment/Plan Comment:: Patient will be admitted to [facility] bed and enrolled in physical therapy as well as occupational therapy. Medications per med reconciliation. She is a code level III. Changes will be made to her therapeutic regimen as necessary.
[2016-08-14] MEDS: Allopurinol 100 MG Tab PO SCH (14:50)
[2016-08-14] MEDS: Carbidopa/Levodopa 25-100 MG Tab PO SCH (19:43)
[2016-08-14] MEDS: Albuterol/Ipratropium 3.0-0.5 MG/3 ML Neb Soln NEB PRN (20:20)
[2016-08-15] MEDS: oxyCODONE 5 MG Tab PO PRN ×4 (00:36→22:30)
[2016-08-15] MEDS: Pantoprazole 40 MG Tab.CR PO SCH (06:27)
[2016-08-15] MEDS: Levothyroxine 75 MCG Tab PO SCH (06:27)
[2016-08-15] MEDS: Albuterol/Ipratropium 3.0-0.5 MG/3 ML Neb Soln NEB PRN ×3 (07:22→22:03)
[2016-08-15] MEDS: Polyethylene Glycol 3350 Powder 17 GM Packet PO SCH (08:12)
[2016-08-15] MEDS: Insuln Aspart Prot/Insulin Aspart 100 Units/ML 3 ML FlexPen SUBCUT SCH ×2 (08:12→18:06)
[2016-08-15] MEDS: Betamethasone Dipropionate/Clotrimazole 0.05-1% Crm 15 GM Tube TOP SCH ×2 (08:13→19:37)
[2016-08-15] MEDS: Cholecalciferol (Vitamin D3) 1,000 Unit Tab PO SCH (08:14)
[2016-08-15] MEDS: Potassium Chloride 10 MEQ Tab.ER PO SCH (08:14)
[2016-08-15] MEDS: Digoxin 125 MCG Tab PO SCH (08:15)
[2016-08-15] MEDS: Sertraline 100 MG Tab PO SCH (08:15)
[2016-08-15] MEDS: Hydroxychloroquine 200 MG Tab PO SCH ×3 (08:15→19:37)
[2016-08-15] MEDS: Clopidogrel 75 MG Tab PO SCH (08:15)
[2016-08-15] MEDS: guaiFENesin 600 MG Tab.ER PO SCH ×2 (08:15→19:37)
[2016-08-15] MEDS: Torsemide 20 MG Tab PO SCH (08:16)
[2016-08-15] MEDS: Metoprolol Succinate 25 MG Tab.ER PO SCH (08:16)
[2016-08-15] MEDS: Aspirin 81 MG Tab.EC PO SCH (08:19)
[2016-08-15] MEDS: Allopurinol 100 MG Tab PO SCH (08:19)
[2016-08-15] MEDS: Loratadine 10 MG Tab PO SCH (08:19)
[2016-08-15] MEDS: Iron Polysaccharides Complex 150 MG Cap PO SCH (08:19)
[2016-08-15] MEDS: rOPINIRole 0.5 MG Tab PO SCH ×2 (08:20→14:10)
[2016-08-15] MEDS: Carbidopa/Levodopa 25-100 MG Tab PO SCH (19:37)
[2016-08-16] MEDS: oxyCODONE 5 MG Tab PO PRN ×3 (04:28→15:13)
[2016-08-16] MEDS: Levothyroxine 75 MCG Tab PO SCH (06:10)
[2016-08-16] MEDS: Pantoprazole 40 MG Tab.CR PO SCH (06:10)
[2016-08-16] MEDS: Albuterol/Ipratropium 3.0-0.5 MG/3 ML Neb Soln NEB PRN ×2 (07:38→19:58)
[2016-08-16] MEDS: Cholecalciferol (Vitamin D3) 1,000 Unit Tab PO SCH (08:40)
[2016-08-16] MEDS: Torsemide 20 MG Tab PO SCH (08:40)
[2016-08-16] MEDS: guaiFENesin 600 MG Tab.ER PO SCH ×2 (08:41→19:55)
[2016-08-16] MEDS: Allopurinol 100 MG Tab PO SCH (08:41)
[2016-08-16] MEDS: Digoxin 125 MCG Tab PO SCH (08:41)
[2016-08-16] MEDS: Iron Polysaccharides Complex 150 MG Cap PO SCH (08:41)
[2016-08-16] MEDS: Loratadine 10 MG Tab PO SCH (08:41)
[2016-08-16] MEDS: Aspirin 81 MG Tab.EC PO SCH (08:41)
[2016-08-16] MEDS: rOPINIRole 0.5 MG Tab PO SCH ×2 (08:42→15:13)
[2016-08-16] MEDS: Potassium Chloride 10 MEQ Tab.ER PO SCH (08:42)
[2016-08-16] MEDS: Clopidogrel 75 MG Tab PO SCH (08:42)
[2016-08-16] MEDS: Hydroxychloroquine 200 MG Tab PO SCH ×3 (08:42→19:55)
[2016-08-16] MEDS: Sertraline 100 MG Tab PO SCH (08:43)
[2016-08-16] MEDS: Polyethylene Glycol 3350 Powder 17 GM Packet PO SCH (08:43)
[2016-08-16] MEDS: Betamethasone Dipropionate/Clotrimazole 0.05-1% Crm 15 GM Tube TOP SCH (08:44)
[2016-08-16] MEDS: Metolazone 2.5 MG Tab PO SCH (08:47)
[2016-08-16] MEDS: Insuln Aspart Prot/Insulin Aspart 100 Units/ML 3 ML FlexPen SUBCUT SCH ×2 (08:48→18:13)
[2016-08-16] MEDS: Metoprolol Succinate 25 MG Tab.ER PO SCH ×2 (08:49→11:16)
[2016-08-16] MEDS: Nystatin Crm 30 GM Tube TOP SCH (19:54)
[2016-08-16] MEDS: Carbidopa/Levodopa 25-100 MG Tab PO SCH (19:55)
[2016-08-17] MEDS: Pantoprazole 40 MG Tab.CR PO SCH ×2 (05:14→07:02)
[2016-08-17] MEDS: oxyCODONE 5 MG Tab PO PRN ×2 (05:14→18:55)
[2016-08-17] MEDS: Levothyroxine 75 MCG Tab PO SCH ×2 (05:14→07:02)
[2016-08-17] MEDS: Albuterol/Ipratropium 3.0-0.5 MG/3 ML Neb Soln NEB PRN ×2 (05:18→19:57)
[2016-08-17] MEDS: Insuln Aspart Prot/Insulin Aspart 100 Units/ML 3 ML FlexPen SUBCUT SCH ×2 (08:23→17:59)
[2016-08-17] MEDS: Torsemide 20 MG Tab PO SCH (08:31)
[2016-08-17] MEDS: Aspirin 81 MG Tab.EC PO SCH (08:31)
[2016-08-17] MEDS: Potassium Chloride 10 MEQ Tab.ER PO SCH (08:32)
[2016-08-17] MEDS: guaiFENesin 600 MG Tab.ER PO SCH ×2 (08:32→19:57)
[2016-08-17] MEDS: Sertraline 100 MG Tab PO SCH (08:32)
[2016-08-17] MEDS: Digoxin 125 MCG Tab PO SCH (08:32)
[2016-08-17] MEDS: Allopurinol 100 MG Tab PO SCH (08:32)
[2016-08-17] MEDS: Iron Polysaccharides Complex 150 MG Cap PO SCH (08:32)
[2016-08-17] MEDS: Hydroxychloroquine 200 MG Tab PO SCH ×3 (08:33→19:56)
[2016-08-17] MEDS: Polyethylene Glycol 3350 Powder 17 GM Packet PO SCH (08:33)
[2016-08-17] MEDS: rOPINIRole 0.5 MG Tab PO SCH ×2 (08:33→14:12)
[2016-08-17] MEDS: Loratadine 10 MG Tab PO SCH (08:33)
[2016-08-17] MEDS: Cholecalciferol (Vitamin D3) 1,000 Unit Tab PO SCH (08:33)
[2016-08-17] MEDS: Clopidogrel 75 MG Tab PO SCH (08:33)
[2016-08-17] MEDS: Nystatin Crm 30 GM Tube TOP SCH ×2 (10:00→21:17)
[2016-08-17] MEDS: Metoprolol Succinate 25 MG Tab.ER PO SCH (12:39)
[2016-08-17] MEDS: Carbidopa/Levodopa 25-100 MG Tab PO SCH (19:56)
[2016-08-18] MEDS: Albuterol/Ipratropium 3.0-0.5 MG/3 ML Neb Soln NEB PRN ×2 (00:19→20:49)
[2016-08-18] MEDS: oxyCODONE 5 MG Tab PO PRN ×3 (00:19→22:07)
[2016-08-18] MEDS: Levothyroxine 75 MCG Tab PO SCH (06:44)
[2016-08-18] MEDS: Pantoprazole 40 MG Tab.CR PO SCH (06:45)
[2016-08-18] MEDS: Cholecalciferol (Vitamin D3) 1,000 Unit Tab PO SCH (08:22)
[2016-08-18] MEDS: rOPINIRole 0.5 MG Tab PO SCH ×2 (08:22→13:36)
[2016-08-18] MEDS: Aspirin 81 MG Tab.EC PO SCH (08:23)
[2016-08-18] MEDS: Torsemide 20 MG Tab PO SCH (08:23)
[2016-08-18] MEDS: Digoxin 125 MCG Tab PO SCH (08:24)
[2016-08-18] MEDS: Potassium Chloride 10 MEQ Tab.ER PO SCH (08:24)
[2016-08-18] MEDS: Iron Polysaccharides Complex 150 MG Cap PO SCH (08:25)
[2016-08-18] MEDS: Allopurinol 100 MG Tab PO SCH (08:25)
[2016-08-18] MEDS: Clopidogrel 75 MG Tab PO SCH (08:25)
[2016-08-18] MEDS: Sertraline 100 MG Tab PO SCH (08:25)
[2016-08-18] MEDS: Hydroxychloroquine 200 MG Tab PO SCH ×3 (08:26→20:47)
[2016-08-18] MEDS: guaiFENesin 600 MG Tab.ER PO SCH ×2 (08:26→20:48)
[2016-08-18] MEDS: Polyethylene Glycol 3350 Powder 17 GM Packet PO SCH (08:26)
[2016-08-18] MEDS: Loratadine 10 MG Tab PO SCH (08:26)
[2016-08-18] MEDS: Insuln Aspart Prot/Insulin Aspart 100 Units/ML 3 ML FlexPen SUBCUT SCH ×2 (08:27→17:57)
[2016-08-18] MEDS: Nystatin Crm 30 GM Tube TOP SCH ×2 (09:25→20:49)
[2016-08-18] MEDS: Metoprolol Succinate 25 MG Tab.ER PO SCH (11:52)
[2016-08-18] MEDS ORDERED: Fluconazole 100 MG Tab PO ONE (12:42)
--- NOTE | 2016-08-18 13:03 | PN ---
Progress Note for EARL CARNEY Date: 08/18/2016 Room #: VM.221 A 76-year-old with increasing groin irritation and vaginal irritation. She has had numerous yeast infections prior. She is on swing bed recovering after a heart failure stay down at [facility]. She was started on nystatin on 08/16, but she has been on it before. Desenex was started yesterday but she feels like it is more inside. She has tolerated Diflucan in the past. Discussed with the patient that we would try Diflucan. I examined her groin. She has some redness over the right groin. Left groin is okay. There is no obvious discharge. There are no sores noted in her live area. Otherwise, the patient will remain on swing bed. Dr. Mendoza is out of town, so further questions can be directed to me. MKA: 08/18/2016 12:44:51 MODL: 08/18/2016 12:54:16 /[id number]
[2016-08-18] MEDS: Carbidopa/Levodopa 25-100 MG Tab PO SCH (20:48)
[2016-08-19] MEDS: Levothyroxine 75 MCG Tab PO SCH (06:25)
[2016-08-19] MEDS: Pantoprazole 40 MG Tab.CR PO SCH (06:25)
[2016-08-19] MEDS: Polyethylene Glycol 3350 Powder 17 GM Packet PO SCH (08:22)
[2016-08-19] MEDS: Torsemide 20 MG Tab PO SCH (08:22)
[2016-08-19] MEDS: Loratadine 10 MG Tab PO SCH (08:22)
[2016-08-19] MEDS: rOPINIRole 0.5 MG Tab PO SCH ×2 (08:23→13:34)
[2016-08-19] MEDS: Allopurinol 100 MG Tab PO SCH (08:23)
[2016-08-19] MEDS: Aspirin 81 MG Tab.EC PO SCH (08:23)
[2016-08-19] MEDS: Iron Polysaccharides Complex 150 MG Cap PO SCH (08:23)
[2016-08-19] MEDS: Clopidogrel 75 MG Tab PO SCH (08:24)
[2016-08-19] MEDS: Sertraline 100 MG Tab PO SCH (08:24)
[2016-08-19] MEDS: Cholecalciferol (Vitamin D3) 1,000 Unit Tab PO SCH (08:24)
[2016-08-19] MEDS: Potassium Chloride 10 MEQ Tab.ER PO SCH (08:24)
[2016-08-19] MEDS: Digoxin 125 MCG Tab PO SCH (08:24)
[2016-08-19] MEDS: Hydroxychloroquine 200 MG Tab PO SCH ×3 (08:26→20:37)
[2016-08-19] MEDS: guaiFENesin 600 MG Tab.ER PO SCH ×2 (08:26→20:38)
[2016-08-19] MEDS: Nystatin Crm 30 GM Tube TOP SCH ×2 (08:27→20:39)
[2016-08-19] MEDS: Insuln Aspart Prot/Insulin Aspart 100 Units/ML 3 ML FlexPen SUBCUT SCH ×2 (08:28→17:33)
[2016-08-19] MEDS: oxyCODONE 5 MG Tab PO PRN (09:32)
[2016-08-19] MEDS: Metolazone 2.5 MG Tab PO SCH (09:37)
[2016-08-19] MEDS: Albuterol/Ipratropium 3.0-0.5 MG/3 ML Neb Soln NEB PRN ×2 (10:36→20:38)
[2016-08-19] MEDS: Metoprolol Succinate 25 MG Tab.ER PO SCH (11:42)
[2016-08-19] MEDS: Carbidopa/Levodopa 25-100 MG Tab PO SCH (20:37)
[2016-08-20] MEDS: Pantoprazole 40 MG Tab.CR PO SCH (06:09)
[2016-08-20] MEDS: Levothyroxine 75 MCG Tab PO SCH (06:09)
[2016-08-20] MEDS: Polyethylene Glycol 3350 Powder 17 GM Packet PO SCH (07:09)
[2016-08-20] MEDS: Allopurinol 100 MG Tab PO SCH (07:10)
[2016-08-20] MEDS: Loratadine 10 MG Tab PO SCH (07:10)
[2016-08-20] MEDS: Sertraline 100 MG Tab PO SCH (07:10)
[2016-08-20] MEDS: Torsemide 20 MG Tab PO SCH (07:10)
[2016-08-20] MEDS: Clopidogrel 75 MG Tab PO SCH (07:10)
[2016-08-20] MEDS: Cholecalciferol (Vitamin D3) 1,000 Unit Tab PO SCH (07:11)
[2016-08-20] MEDS: Digoxin 125 MCG Tab PO SCH (07:11)
[2016-08-20] MEDS: Potassium Chloride 10 MEQ Tab.ER PO SCH (07:12)
[2016-08-20] MEDS: Hydroxychloroquine 200 MG Tab PO SCH ×3 (07:12→21:07)
[2016-08-20] MEDS: guaiFENesin 600 MG Tab.ER PO SCH ×2 (07:12→21:07)
[2016-08-20] MEDS: rOPINIRole 0.5 MG Tab PO SCH ×2 (07:13→13:50)
[2016-08-20] MEDS: Iron Polysaccharides Complex 150 MG Cap PO SCH (07:13)
[2016-08-20] MEDS: Aspirin 81 MG Tab.EC PO SCH (07:13)
[2016-08-20] MEDS: Acetaminophen 325 MG Tab PO PRN (07:13)
[2016-08-20] MEDS: Insuln Aspart Prot/Insulin Aspart 100 Units/ML 3 ML FlexPen SUBCUT SCH ×2 (07:17→17:24)
[2016-08-20] MEDS: Nystatin Crm 30 GM Tube TOP SCH ×2 (07:18→21:08)
[2016-08-20] MEDS: Albuterol/Ipratropium 3.0-0.5 MG/3 ML Neb Soln NEB PRN ×3 (07:24→23:07)
[2016-08-20] MEDS: oxyCODONE 5 MG Tab PO PRN ×2 (08:36→21:16)
[2016-08-20] MEDS: Calcium Carbonate 750 MG Tab.Chew PO PRN ×2 (08:38→21:08)
[2016-08-20] MEDS: Metoprolol Succinate 25 MG Tab.ER PO SCH (11:54)
[2016-08-20] MEDS ORDERED: Fluconazole 100 MG Tab PO ONE (12:59)
[2016-08-20] MEDS: Carbidopa/Levodopa 25-100 MG Tab PO SCH (21:07)
[2016-08-21] MEDS: oxyCODONE 5 MG Tab PO PRN ×3 (04:10→21:02)
[2016-08-21] MEDS: Pantoprazole 40 MG Tab.CR PO SCH (06:11)
[2016-08-21] MEDS: Levothyroxine 75 MCG Tab PO SCH (06:11)
[2016-08-21] MEDS: rOPINIRole 0.5 MG Tab PO SCH ×2 (08:11→13:40)
[2016-08-21] MEDS: Aspirin 81 MG Tab.EC PO SCH (08:11)
[2016-08-21] MEDS: Torsemide 20 MG Tab PO SCH (08:12)
[2016-08-21] MEDS: Allopurinol 100 MG Tab PO SCH (08:12)
[2016-08-21] MEDS: Potassium Chloride 10 MEQ Tab.ER PO SCH (08:13)
[2016-08-21] MEDS: Loratadine 10 MG Tab PO SCH (08:13)
[2016-08-21] MEDS: Hydroxychloroquine 200 MG Tab PO SCH ×3 (08:13→20:53)
[2016-08-21] MEDS: Iron Polysaccharides Complex 150 MG Cap PO SCH (08:13)
[2016-08-21] MEDS: Sertraline 100 MG Tab PO SCH (08:15)
[2016-08-21] MEDS: guaiFENesin 600 MG Tab.ER PO SCH ×2 (08:15→20:53)
[2016-08-21] MEDS: Clopidogrel 75 MG Tab PO SCH (08:15)
[2016-08-21] MEDS: Digoxin 125 MCG Tab PO SCH (08:15)
[2016-08-21] MEDS: Polyethylene Glycol 3350 Powder 17 GM Packet PO SCH (08:17)
[2016-08-21] MEDS: Insuln Aspart Prot/Insulin Aspart 100 Units/ML 3 ML FlexPen SUBCUT SCH ×2 (08:18→17:57)
[2016-08-21] MEDS: Nystatin Crm 30 GM Tube TOP SCH ×2 (08:19→20:54)
[2016-08-21] MEDS: Cholecalciferol (Vitamin D3) 1,000 Unit Tab PO SCH (08:19)
[2016-08-21] MEDS: Albuterol/Ipratropium 3.0-0.5 MG/3 ML Neb Soln NEB PRN ×2 (10:31→14:50)
[2016-08-21] MEDS: Metoprolol Succinate 25 MG Tab.ER PO SCH (11:06)
[2016-08-21] MEDS: Carbidopa/Levodopa 25-100 MG Tab PO SCH (20:53)
[2016-08-22] MEDS: oxyCODONE 5 MG Tab PO PRN (06:32)
[2016-08-22] MEDS: Pantoprazole 40 MG Tab.CR PO SCH (06:34)
[2016-08-22] MEDS: Levothyroxine 75 MCG Tab PO SCH (06:34)
[2016-08-22] MEDS: Albuterol/Ipratropium 3.0-0.5 MG/3 ML Neb Soln NEB PRN (07:07)
[2016-08-22] MEDS: Insuln Aspart Prot/Insulin Aspart 100 Units/ML 3 ML FlexPen SUBCUT SCH (08:00)
[2016-08-22] MEDS: Cholecalciferol (Vitamin D3) 1,000 Unit Tab PO SCH (08:05)
[2016-08-22] MEDS: guaiFENesin 600 MG Tab.ER PO SCH (08:05)
[2016-08-22] MEDS: Allopurinol 100 MG Tab PO SCH (08:06)
[2016-08-22] MEDS: Sertraline 100 MG Tab PO SCH (08:06)
[2016-08-22] MEDS: Aspirin 81 MG Tab.EC PO SCH (08:06)
[2016-08-22] MEDS: rOPINIRole 0.5 MG Tab PO SCH (08:06)
[2016-08-22] MEDS: Torsemide 20 MG Tab PO SCH (08:06)
[2016-08-22] MEDS: Iron Polysaccharides Complex 150 MG Cap PO SCH (08:06)
[2016-08-22] MEDS: Potassium Chloride 10 MEQ Tab.ER PO SCH (08:07)
[2016-08-22] MEDS: Loratadine 10 MG Tab PO SCH (08:07)
[2016-08-22] MEDS: Hydroxychloroquine 200 MG Tab PO SCH ×2 (08:07→11:58)
[2016-08-22] MEDS: Clopidogrel 75 MG Tab PO SCH (08:07)
[2016-08-22] MEDS: Nystatin Crm 30 GM Tube TOP SCH (08:08)
[2016-08-22] MEDS: Digoxin 125 MCG Tab PO SCH (08:08)
[2016-08-22] MEDS: Polyethylene Glycol 3350 Powder 17 GM Packet PO SCH (08:08)
[2016-08-22] MEDS: Metolazone 2.5 MG Tab PO SCH (11:54)
[2016-08-22] MEDS: Metoprolol Succinate 25 MG Tab.ER PO SCH (11:55)
[2016-08-22 11:59] VITALS: BP 122/45
--- NOTE | 2016-08-23 01:37 | DISCH ---
PRIMARY DISCHARGE DIAGNOSES: Deconditioning, secondary to an acute admission at [facility] on 08/07/2016 for acute hypoxic respiratory failure secondary to chronic obstructive pulmonary disease exacerbation, congestive heart failure, and atrial fibrillation with rapid ventricular rate. SECONDARY DISCHARGE DIAGNOSES: 1. Chronic opioid dependence. 2. Coronary artery disease. 3. Congestive heart failure with EF of 40% to 45% on her recent admission. 4. Chronic obstructive pulmonary disease with previous intubation about 1 year ago. 5. Psoriasis with psoriatic arthritis. 6. Essential hypertension. 7. Pulmonary hypertension. 8. Dyslipidemia. 9. Gout. 10.Major depressive disorder. 11.GERD. 12.Type 2 diabetes. 13.Chronic kidney disease stage III, creatinine was 2.2 on 08/13/2016. 14.Chronic anemia, probably due to chronic disease with hemoglobin 9.8 and probably some iron deficiency anemia as well. 15.Hypothyroidism. Surgically, she has had coronary stents and appendectomy, cholecystectomy, and hysterectomy. REASON FOR ADMISSION: On the date of admission, this 76-year-old female who was transferred to [place] in acute respiratory failure on BiPAP, was treated at [facility], she was diuresed and gradually improved to the point where she could be discharged back for swing bed cares. She is on torsemide and metolazone is given every 3 days. This regimen was continued on swing bed. She just had a slight amount of trace edema on her ankles and starting up on her foot, but she was not having any shortness of breath. During her stay here, she worked with therapies and actually would have benefitted from further OT for her hand, but will be continuing that at home with home health. Otherwise, she did have some irritation vaginally, she had some groin redness and rash. She had been receiving nystatin. I talked to her about this and she would like to try an oral pill, so she received Diflucan and repeated a couple of days later and her symptoms resolved. Otherwise, for the past couple of days before discharge, she was having some cough, feeling like just phlegm in her throat, but was not really coughing up anything. She had not had increasing breathing trouble or wheezing. She is normally on nebs, and has a followup with Pulmonary planned as an outpatient. Otherwise, she said maybe it is just my sinuses draining. She does use some Flonase occasionally at home, but it was stopped in [place]. She also has saline rinses. Prior to this happening, she said she had gotten some prednisone from the clinic for her other symptoms and she does have allergies. Otherwise, she had had some ear discomfort and some drainage, but that was before this admission and now she is not having any ear pain. But, occasionally her hearing comes and goes. DISCHARGE PLANS AND INSTRUCTIONS: She will follow up with Dr. Mendoza in the clinic in 1 to 2 weeks for post hospital followup. She does have pain pills available at home. It should be noted, she received allopurinol during her stay here, but will go back on Uloric on discharge. I do not note that the Uloric was actually ordered on her [facility] discharge for some reason, and I plan to just restart that as before as I do not see any indication to stop it and she would be at high risk for gout with a renal insufficiency and her diuretics. Otherwise, she will have nystatin and Lotrisone available if needed for her rash, although that had improved and diltiazem was not given to her during her stay here and heart rates were controlled. PHYSICAL EXAMINATION: Vital Signs: Discharge vitals included temperature 98.2, pulse 82, blood pressure 109/36, respiratory rate 20, and O2 of 98% on 3.5 L. General: She is in no acute distress. Heart: Irregularly irregular. Lungs: Sounds are clear to auscultation bilaterally without crackles or wheezes. Abdomen: Positive bowel sounds. Soft and nontender. Extremities: Warm and dry, just trace edema over her ankle and right foot. Mental Status: She is alert and orientated x3. Home Health addendum: The patient was seen [id number] by me on 08/22/2016. Dr. Mendoza will periodically follow her plan of care. She requires nursing to assess for exacerbations of heart failure, respiratory distress to provide teaching for her medications and to do weights and vitals. She will need therapy to help with mobility and occupational therapy to help with her hand strength and fine motor skills. She is unable to leave her home independently due to impaired mobility from her multiple health problems including heart failure and COPD which require oxygen and then she is short of breath with ambulation. The patient states her also has health problems. Therefore, it is difficult for her to leave the home without the assistance of another person as well. MKA: 08/22/2016 09:41:45 MODL: 08/22/2016 11:11:32 /[id number]
== END 2016-08-22 13:35 | disposition home health service (06) | DRG 948 ==
LOC: VM.MS 15:24
PROVIDERS: ADMIT Family Medicine; ATTEND Family Medicine
DX: R53.1 Weakness (principal); I13.0 Hypertensive heart and chronic kidney disease with heart failure and stage 1 through stage 4 chronic kidney disease, or unspecified chronic kidney disease; I50.32 Chronic diastolic (congestive) heart failure; F11.20 Opioid dependence, uncomplicated; I25.10 Atherosclerotic heart disease of native coronary artery without angina pectoris; J44.9 Chronic obstructive pulmonary disease, unspecified; L40.50 Arthropathic psoriasis, unspecified; I27.2 Other secondary pulmonary hypertension; E78.5 Hyperlipidemia, unspecified; M10.9 Gout, unspecified; F32.9 Major depressive disorder, single episode, unspecified; K21.9 Gastro-esophageal reflux disease without esophagitis; E11.9 Type 2 diabetes mellitus without complications; N18.3 Chronic kidney disease, stage 3 (moderate); D63.8 Anemia in other chronic diseases classified elsewhere; E03.9 Hypothyroidism, unspecified; Z99.81 Dependence on supplemental oxygen; I48.91 Unspecified atrial fibrillation
CPT/HCPCS: 82962; 94640-76; 94760; 97110-GO; 97110-GP; 97116-GP; 97161-GP; 97165-GO; 97530-GP; A9270-GY; J1815-GY

== ENCOUNTER 2019-08-04 11:36 | Inpatient (IN) | payer OTHER, MEDICARE, BC ==
--- NOTE | 2019-08-04 12:26 | EDM.PDOC ---
ED HPI GENERAL MEDICAL PROBLEM - General Chief Complaint: Gastrointestinal Problem Time Seen by Provider: 08/04/19 11:40 Source of Information: Reports: Patient History Limitations: Reports: No Limitations - History of Present Illness INITIAL COMMENTS - FREE TEXT/NARRATIVE: Pt. presents to ER with complaints of coffee ground emesis, abdominal discomfort, weakness, and increased shortness of breath. Pt. states that the symptoms started last night. Pt. was placed on hospice on Wednesday due to stage 4- 5 CKD,chronic respiratory failure and hypercarbia, diastolic heart failure with echo in 2017. Last echo showedEF 60-65%, grade 1 LV diastolic dysfunction, normalRV function, moderate mitral regurg. Last GFR was 12, with creat of 3.56 and BUN of 67. She has numerous other medical conditions, including HTN, MIKAELA,paroxysmal atrial fib, CAD and psoriatic arthritis. Pt. was started on hospice last Wednesday. Decision was made to revoke her hospice status and have her seen in ER due to the symptoms above. Pt. denies any chest pain. No cough. No fever or chills. She has not been looking at her stools. She does not have a history of GI bleeding that she is aware of. Onset Date: 08/03/19 Location: Reports: Abdomen, Generalized Generalized Pain Score (Numeric/FACES): 6 Middle Abdomen Pain Score (Numeric/FACES): 5 - Related Data Allergies Allergy/AdvReac Type Severity Reaction Status Date / Time amoxicillin Allergy Cannot Verified 08/04/19 11:32 Remember lovastatin [From Mevacor] Allergy Other Verified 08/04/19 11:32 metformin Allergy Other Verified 08/04/19 11:32 ciprofloxacin [From Cipro] AdvReac Hallucinati Verified 08/04/19 11:32 ons codeine AdvReac Renal Verified 08/04/19 11:32 Insufficiency naproxen AdvReac Renal Verified 08/04/19 11:32 Failure Home Meds: Home Meds Clopidogrel Bisulfate [Clopidogrel] 75 mg PO DAILY 10/16/13 [History] Pantoprazole Sodium 40 mg PO DAILY 10/16/13 [History] Methyl Salicylate/Menthol [Muscle Rub Cream] 1 applic TOP QID PRN 04/25/14 [History] Nitroglycerin [Nitrostat] 0.4 mg SL ASDIRECTED PRN #0 tab.sl 02/27/15 [Rx] Sertraline [Zoloft] 100 mg PO DAILY tablet 02/27/15 [Rx] Aspirin [Halfprin] 81 mg PO DAILY 08/09/15 [History] Cholecalciferol (Vitamin D3) [Vitamin D3] 2,000 unit PO DAILY 08/09/15 [History] rOPINIRole [Requip] 0.5 mg PO TID 08/09/15 [History] Albuterol/Ipratropium [DuoNeb 3.0-0.5 MG/3 ML] 3 ml NEB Q4HR PRN 08/13/16 [History] Calcium Carbonate [Tums] 500 mg PO TID PRN 08/13/16 [History] Loratadine [Claritin] 10 mg PO DAILY 08/13/16 [History] Metolazone [Zaroxolyn] 5 mg PO Q72H 08/13/16 [History] Carbidopa/Levodopa [Sinemet 25-100 mg Tablet] 1 tab PO BEDTIME 08/14/16 [History] Hydroxychloroquine Sulfate [Plaquenil] 200 mg PO BIDMEALS 08/14/16 [History] Febuxostat [Uloric] 40 mg PO DAILY #30 tablet 08/22/16 [Rx] Albuterol [Ventolin HFA] 2 puff INH Q6H PRN 05/11/17 [History] Iron Polysaccharides Complex [Ferrex 150] 150 mg PO DAILY 05/11/17 [History] Levothyroxine [Synthroid] 100 mcg PO DAILY 05/11/17 [History] Acetaminophen 650 mg PO Q4H PRN MDD 4000 mg per day 12/14/17 [History] Budesonide [Pulmicort] 2 ml NEB BID 12/14/17 [History] Docusate Sodium/Sennosides [Senokot-S] 1 tab PO DAILY PRN 12/14/17 [History] Insuln Asp Prot/Insulin Aspart [NovoLOG Mix 70-30] 6 unit SQ BIDMEALS 12/14/17 [History] Nystatin [Nystatin Crm] 1 applic TOP ASDIRECTED PRN 12/15/17 [History] Betamethasone/Clotrimazole [Lotrisone] 1 applic TOP BID PRN 01/03/19 [History] Formoterol Fumarate [Perforomist] 2 ml INH BID 01/03/19 [History] Insuln Asp Prot/Insulin Aspart [NovoLOG Mix 70-30] 4 unit SQ BID PRN 01/03/19 [History] Metoprolol Succinate [Toprol XL] 25 mg PO DAILY 01/03/19 [History] Potassium Chloride [Klor-Con 10] 10 meq PO DAILY 01/03/19 [History] Torsemide 20 mg PO DAILY 01/03/19 [History] polyethylene glycoL 3350 [MiraLAX] 17 g PO DAILY PRN 01/03/19 [History] oxyCODONE 10 mg PO BID tablet 01/12/19 [Rx] Past Medical History HEENT History: Reports: Epistaxis, Hard of Hearing, Sinusitis, Other (See Below) Other HEENT History: dysphagia Cardiovascular History: Reports: Afib, Arrhythmia, CAD, Heart Failure, High Cholesterol, Hypertension, [place], SOB on Exertion Respiratory History: Reports: COPD, Sleep Apnea, SOB Gastrointestinal History: Reports: GERD, GI Bleed Genitourinary History: Reports: Renal Disease BACK STAYER History: Reports: Musculoskeletal History: Reports: Arthritis, Fracture, Gout Other Musculoskeletal History: HX FX b ankles Neurological History: Reports: Migraines Psychiatric History: Reports: Anxiety, Depression Endocrine/Metabolic History: Reports: Diabetes, Type II, Hypothyroidism, Obesity/BMI 30+ Hematologic History: Reports: Anemia, Bleeding Disorder, Iron Deficiency Dermatologic History: Reports: Eczema, Psoriasis Other Dermatologic History: posterior lower head - Past Surgical History Cardiovascular Surgical History: Reports: Coronary Artery Stent, Other (See Below) Other Cardiovascular Surgeries/Procedures: coronary angioplasty Respiratory Surgical History: Reports: None GI Surgical History: Reports: Appendectomy, Cholecystectomy, Colonoscopy, EGD Female Surgical History: Reports: Hysterectomy Musculoskeletal Surgical History: Reports: Other (See Below) Other Musculoskeletal Surgeries/Procedures:: trigger points Social & Family History - Family History Family Medical History: Noncontributory HEENT: Reports: None Cardiac: Reports: None Musculoskeletal: Reports: Arthritis Endocrine/Metabolic: Reports: Diabetes, Type I Hematologic: Reports: None Immunologic: Reports: None Oncologic: Reports: Lung - Caffeine Use Caffeine Use: Reports: Coffee, Soda ED ROS GENERAL - Review of Systems Review Of Systems: See Below Constitutional: Reports: No Symptoms HEENT: Reports: No Symptoms Respiratory: Reports: Shortness of Breath Cardiovascular: Reports: No Symptoms Endocrine: Reports: No Symptoms GI/Abdominal: Reports: Abdominal Pain, Hematemesis : Reports: No Symptoms Musculoskeletal: Reports: No Symptoms Skin: Reports: No Symptoms Neurological: Reports: No Symptoms Psychiatric: Reports: No Symptoms Hematologic/Lymphatic: Reports: No Symptoms Immunologic: Reports: No Symptoms ED EXAM, GENERAL - Physical Exam Exam: See Below Exam Limited By: No Limitations General Appearance: Alert, WD/WN, No Apparent Distress Throat/Mouth: Normal Inspection, Normal Lips, Normal Teeth, Normal Voice, No Airway Compromise Head: Atraumatic, Normocephalic Neck: Normal Inspection, Supple, Non-Tender, Full Range of Motion Respiratory/Chest: No Accessory Muscle Use, Chest Non-Tender, Decreased Breath Sounds Cardiovascular: Systolic Murmur, Irregularly Irregular GI/Abdominal: Soft, No Distention, Tender (mid abdominal region) (Female) Exam: Deferred Rectal (Female) Exam: Deferred Back Exam: Normal Inspection, Full Range of Motion Extremities: Normal Inspection, Normal Range of Motion, Non-Tender, Normal Capillary Refill Neurological: Alert, Oriented, CN II-XII Intact, Normal Cognition, Normal Reflexes, No Motor/Sensory Deficits Psychiatric: Normal Affect, Normal Mood Skin Exam: Warm, Dry, No Rash, Pallor Lymphatic: No Adenopathy Course - Vital Signs Last Recorded V/S: Last Vital Signs Temp 36.6 C 08/04/19 22:00 Pulse 84 08/04/19 22:00 Resp 20 08/04/19 22:00 BP 127/38 L 08/04/19 22:00 Pulse Ox 95 08/04/19 22:00 - Orders/Labs/Meds Labs: Laboratory Tests 08/04/19 08/04/19 08/04/19 Range/Units 12:08 12:08 12:08 WBC 8.0 (4.0-10.0) x10^3/uL RBC 2.67 L (4.00-5.50) x10^6/uL Hgb 8.4 L D (12.0-16.0) g/dL Hct 27.9 L (33.0-47.0) % MCV 104.5 H D (78.0-93.0) fL MCH 31.5 (26.0-32.0) pg MCHC 30.1 L (32.0-36.0) g/dL RDW Coeff of Srinivasan 14.7 (10.0-15.0) % Plt Count 152 (130-400) x10^3/uL Add Manual Diff Yes Neutrophils % (Manual) 80 (50-80) % Band Neutrophils % 4 (0-6) % Lymphocytes % (Manual) 8 L (25-50) % Monocytes % (Manual) 7 (2-11) % Eosinophils % (Manual) 1 (0-4) % Platelet Estimate Adequate Anisocytosis 2+ moderate H Macrocytosis 1+ slight H PT 10.4 (9.5-12.3) SEC INR 1.0 L (2.0-3.5) Sodium 144 (136-145) mmol/L Potassium 5.9 H (3.5-5.1) mmol/L Chloride 104 (98-107) mmol/L Carbon Dioxide 31 (21-32) mmol/L Anion Gap 14.9 (10-20) mmol/L BUN 102 H* (7-18) mg/dL Creatinine 4.9 H* (0.55-1.02) mg/dL Est Cr Clr Drug Dosing TNP Estimated GFR (MDRD) 9 Glucose 133 H (74-106) mg/dL Calcium 8.2 L (8.5-10.1) mg/dL Corrected Calcium 8.44 L (8.5-10.1) mg/dL Phosphorus 7.7 H (2.6-4.7) mg/dL Magnesium 1.6 L (1.8-2.4) mg/dL Total Bilirubin 0.4 (0.2-1.0) mg/dL AST 23 (15-37) U/L ALT 18 (14-59) U/L Alkaline Phosphatase 152 H (46-116) U/L C-Reactive Protein 9.3 H (<=0.9) mg/dL Total Protein 7.2 (6.4-8.2) g/dL Albumin 3.7 (3.4-5.0) g/dL Globulin 3.5 Albumin/Globulin Ratio 1.06 Amylase 58 (25-115) U/L Lipase 135 (73-393) U/L TSH, Ultra Sensitive 2.033 (0.358-3.74) uIU/mL Meds: Medications Discontinued Medications Generic Name Dose Route Start Last Admin Trade Name Freq PRN Reason Stop Dose Admin Acetaminophen 650 mg 08/04/19 15:39 Tylenol PO Q4H PRN Pain Albuterol 0 gm 08/04/19 15:39 Ventolin Hfa INH Q6H PRN Shortness of Breath Albuterol/Ipratropium 3 ml 08/04/19 15:39 Duoneb 3.0-0.5 Mg/3 Ml NEB Q4HR PRN Shortness of Breath Arformoterol Tartrate 15 mcg 08/04/19 20:00 08/04/19 19:40 Brovana INH 15 mcg BIDRT [facility] Administration Budesonide 0.5 mg 08/04/19 20:00 08/04/19 19:40 Pulmicort NEB 0.5 mg BIDRT [facility] Administration Carbidopa/Levodopa 1 tab 08/04/19 20:00 08/04/19 19:40 Sinemet 25-100 Mg PO 1 tab BEDTIME [facility] Administration Hydromorphone HCl 0.5 mg 08/04/19 15:38 08/04/19 19:39 Dilaudid IV 0.5 mg Q2H PRN Administration Pain Hydromorphone HCl 0.5 mg 08/04/19 16:00 08/05/19 00:00 Dilaudid IV 0.5 mg Q8H [facility] Administration Hydroxychloroquine Sulfate 200 mg 08/04/19 18:00 08/04/19 18:02 Plaquenil PO 200 mg BIDMEALS [facility] Administration Insulin Lispro Protam/Lispro Human 6 unit 08/04/19 18:00 Humalog Mix 75-25 SUBCUT BIDMEALS [facility] Insulin Lispro Protam/Lispro Human 4 unit 08/04/19 18:00 08/04/19 18:03 Humalog Mix 75-25 SUBCUT 4 unit TIDMEALS [facility] Administration Levothyroxine Sodium 100 mcg 08/05/19 07:00 Synthroid PO ACBREAKFAST [facility] Loratadine 10 mg 08/05/19 08:00 Claritin PO DAILY [facility] Metoprolol Succinate 25 mg 08/05/19 08:00 Toprol Xl PO DAILY [facility] Nitroglycerin 0.4 mg 08/04/19 15:39 Nitrostat SL ASDIRECTED PRN Chest Pain Nystatin gm 08/04/19 15:39 Nystatin Crm TOP ASDIRECTED PRN Rash Ondansetron HCl 4 mg 08/04/19 16:18 Zofran Odt PO Q4H PRN nausea, able to take PO Ondansetron HCl 4 mg 08/04/19 16:18 08/04/19 19:40 Zofran IV 4 mg Q4H PRN Administration Nausea/Vomiting Oxycodone HCl 5 mg 08/04/19 16:18 Oxycodone PO Q4H PRN Pain (moderate 4-6) Pantoprazole Sodium 40 mg 08/04/19 16:00 08/04/19 16:44 Protonix Iv IVPUSH 40 mg Q12H [facility] Administration Polyethylene Glycol 17 gm 08/04/19 15:39 Miralax PO DAILY PRN Constipation Ropinirole HCl 0.5 mg 08/04/19 20:00 08/04/19 19:40 Requip PO 0.5 mg TID [facility] Administration Senna/Docusate Sodium 1 tab 08/04/19 16:15 Senna Plus PO DAILY PRN CONSTIPATION Sertraline HCl 100 mg 08/05/19 08:00 Zoloft PO DAILY [facility] Sodium Chloride 10 ml 08/04/19 11:51 08/05/19 00:01 Saline Flush FLUSH 10 ml ASDIRECTED PRN Administration Keep Vein Open - Radiology Interpretation Free Text/Narrative:: Non-specific bowel gas pattern, gaseous distention of splenic flexure which could represent a colonic ileus, but is otherwise non-specific. No air fluid levels. Departure - Departure Time of Disposition: 13:30 Disposition: Admitted As Inpatient 66 Clinical Impression: GI bleed - Discharge Information
[2019-08-04 12:47] LABS: CHLORIDE,CL 104 mmol/L (98-107); SODIUM,NA 144 mmol/L (136-145)
[2019-08-04 12:50] LABS: ANION GAP 14.9 mmol/L (10-20)
--- NOTE | 2019-08-04 13:05 | CR ---
[id number] RAD/RAD Abd Flat and Upright 2V EXAM: RAD Abd Flat and Upright 2V INDICATION: ABDOMINAL PAIN. COMPARISON: December 18, 2017. DISCUSSION: Mildly prominent colonic stool volume. Nonspecific gaseous distention of the splenic flexure of the colon which could represent a colonic ileus, but is nonspecific. IMPRESSION: 1. Mildly elevated colonic stool. 2. Mild nonspecific gaseous distention of the colon. Bj Mcwilliams MD 08/04/19 [id number] Thank you for allowing us to participate in the care of your patient.
[2019-08-04] MEDS ORDERED: HYDROmorphone 0.5 MG/0.5 ML Syringe IV PRN (15:38)
[2019-08-04] MEDS ORDERED: Albuterol/Ipratropium 3.0-0.5 MG/3 ML Neb Soln NEB PRN (15:39)
[2019-08-04] MEDS ORDERED: Acetaminophen 325 MG Tab PO PRN (15:39)
[2019-08-04] MEDS ORDERED: Nitroglycerin 0.4 MG Tab.SL SL PRN (15:39)
[2019-08-04] MEDS ORDERED: Polyethylene Glycol 3350 Powder 17 GM Packet PO PRN (15:39)
[2019-08-04] MEDS ORDERED: Nystatin Crm 30 GM Tube TOP PRN (15:39)
[2019-08-04] MEDS ORDERED: Albuterol HFA 18 Gm Inhaler INH PRN (15:39)
[2019-08-04] MEDS ORDERED: Pantoprazole 40 MG Vial IVPUSH SCH (16:00)
[2019-08-04] MEDS ORDERED: oxyCODONE 5 MG Tab PO PRN (16:18)
[2019-08-04] MEDS ORDERED: Ondansetron 4 MG Tab.DIS PO PRN (16:18)
[2019-08-04] MEDS ORDERED: Ondansetron 4 MG/2 ML SDV IV PRN (16:18)
[2019-08-04] MEDS: HYDROmorphone 0.5 MG/0.5 ML Syringe IV SCH (16:44)
[2019-08-04] MEDS ORDERED: Insulin Lispro Protamine/Lispro 75-25 100 Units/ML 3 ML KwikPen SUBCUT SCH ×2 (18:00)
[2019-08-04] MEDS ORDERED: Hydroxychloroquine 200 MG Tab PO SCH (18:00)
[2019-08-04] MEDS: Sodium Chloride 0.9% 10 ML Syringe FLUSH PRN (19:39)
[2019-08-04] MEDS ORDERED: Arformoterol 15 MCG/2 ML Neb Soln INH SCH (20:00)
[2019-08-04] MEDS ORDERED: Carbidopa/Levodopa 25-100 MG Tab PO SCH (20:00)
[2019-08-04] MEDS ORDERED: rOPINIRole 0.5 MG Tab PO SCH (20:00)
[2019-08-04] MEDS ORDERED: Budesonide 0.5 MG/2 ML Neb Susp NEB SCH (20:00)
[2019-08-04 23:40] VITALS: BP 127/38; PULSE 84
[2019-08-05] MEDS: HYDROmorphone 0.5 MG/0.5 ML Syringe IV SCH
[2019-08-05] MEDS: Sodium Chloride 0.9% 10 ML Syringe FLUSH PRN (00:01)
--- NOTE | 2019-08-05 00:41 | HP ---
CHIEF COMPLAINT: Hematemesis. HISTORY OF PRESENT ILLNESS: This is a 79-year-old female with multiple severe medical comorbidities who was throwing up coffee-ground emesis this morning, associated with abdominal pain, but has not had any further vomiting since arrival. She just was admitted to hospice a few days ago (COPD), but did revoke today to come to the ER. She is feeling weak. She is denying any new shortness of breath, but has chronic heart failure and COPD. The patient also has worsening kidney failure. She was admitted to [facility] last fall for volume overload and refused dialysis at that time. The patient's EF was down to 40% in the past, but recently was up to 60% to 65%, and she has known pulmonary hypertension. Baseline creatinine is about 3.5. She also has psoriatic arthritis, known coronary disease; paroxysmal atrial fibrillation, not on anticoagulation, but she is on Plavix and aspirin; obstructive sleep apnea and hypertension. The patient otherwise is incontinent of the urine. She is very weak. She needs assistance. X-ray done did show nonspecific bowel gas pattern. However, the patient is not currently vomiting or having any air-fluid levels to suggest an obstruction. ALLERGIES: Include amoxicillin, lovastatin, metformin, Cipro, codeine, and naproxen. MEDICATIONS: Her medication list is reviewed. Currently, it does show the patient to be on: 1. Metoprolol 25 mg daily. 2. Aspirin 81 daily. 3. Lotrisone cream. 4. Calcium. 5. Tums t.i.d. p.r.n. 6. Vitamin D 2000 units daily. 7. Plavix 75 mg daily. 8. Uloric 40 mg daily. 9. Insulin 6 units b.i.d. and 4 units b.i.d. p.r.n. 10.Iron daily. 11.Metolazone 5 mg every 72 hours. 12.Oxycodone, previously was taking like 10 mg up to twice daily, currently was switched to morphine 15 mg t.i.d. per hospice. 13.Protonix 40 mg daily. 14.Potassium 10 mEq daily. 15.Demedex 20 daily. 16.Tylenol as needed. 17.Albuterol and albuterol nebs. 18.Budesonide neb. 19.Carbidopa/levodopa at bedtime. 20.Senna S. 21.Formoterol nebs. 22.Hydroxychloroquine 200 b.i.d. 23.Levothyroxine 100 daily. 24.Loratadine 10 daily. 25.MiraLAX 17 g as needed for constipation. 26.Nystatin cream p.r.n. 27.Requip 0.5 t.i.d. 28.Sertraline 100 daily. PAST MEDICAL HISTORY: Does include chronic respiratory failure, chronic COPD, chronic diastolic heart failure, obesity, chronic kidney disease stage 4, pulmonary hypertension, paroxysmal atrial fibrillation, obstructive sleep apnea on CPAP, type 2 diabetes, coronary artery disease, chronic pain syndrome due to psoriatic arthritis, history of gout, major depressive disorder, type 2 diabetes, chronic anemia, hypothyroidism. PAST SURGICAL HISTORY: Appendectomy, cholecystectomy, hysterectomy, and coronary stents. SOCIAL HISTORY: The patient is living alone at home currently. She is and has at least one daughter who is in [place]. She denies any current alcohol use. She has a previous history of smoking. FAMILY HISTORY: Both parents are . REVIEW OF SYSTEMS: General: The patient is not aware of any weight changes. She is not aware of any fever or chills. HEENT: No sore throat or trouble swallowing. Cardiac: No chest pain. No palpitations. Respiratory: No new cough. No shortness of breath. Abdomen: She has not had nausea, but she has had abdominal pain and vomiting of black material. She tells me she has had previous ulcers. No diarrhea. No constipation. Musculoskeletal: She has chronic back pain, that has not changed. Genitourinary: The patient is incontinent of urine, but denies any burning or increased frequency. Neurologic: She does feel weak, but she does not feel confused. The patient did report to the ER provider she has not had a history of gastrointestinal bleeding per their report. Otherwise, all systems reviewed and found to be negative unless otherwise stated. PHYSICAL EXAMINATION: Vital Signs: Her weight was 107.4 kg, temp 98.9, pulse 89, blood pressure 110/41, respiratory rate 20, O2 of 97% on 4 L. General: She is in no acute distress. She is resting in bed. She opens her eyes easily and answers all questions I feel appropriately. Heart: Regular rate and rhythm, S1, S2, without murmur. Lungs: Lung sounds are clear to auscultation. No crackles. No wheezes. She has good respiratory effort. Abdomen: Mildly distended, but positive bowel sounds and nontender. Extremities: Warm and dry. She has 1+ edema in her ankles. Mental Status: She is alert. She is orientated x3. Genitourinary: She is incontinent of urine. She smells of urine. Skin: There is not any abnormal bruising. She denies any falls. Back: Inspected. She does report some tenderness along her entire spine and no 1 area in particular. She reports this to be chronic. LABORATORY DATA: Lab work does show her to have a white count 8, hemoglobin 8.4, platelets 152. Her previous hemoglobin on her last visit to our ER was around 9.9, that was a couple of years ago. She normally gets care at [facility]. INR 1. Sodium 144, potassium 5.9, chloride 104, bicarb 31, BUN 102, creatinine 4.9, glucose 133, calcium 8.2, magnesium 1.6, bilirubin 0.4, AST 23, ALT 18, alkaline phosphatase 152. CRP 9.3, albumin 3.7, lipase 135, TSH 2.03. UA did show moderate leukocyte esterase, 40 to 50 rbc's, 75 wbc's. She had mildly elevated colonic stool with mild nonspecific gaseous distention of the colon on her x-ray report. ASSESSMENT: 1. Acute gastrointestinal bleeding, probably due to some gastritis or potentially an ulcer, suspect upper. The patient has stopped vomiting now. We will hold off on placing an NG. She is refusing any transfer for EGD. We will treat her conservatively and palliatively with IV Protonix q.12. Repeat a hemoglobin in the a.m. 2. Acute on chronic renal failure, likely due to gastrointestinal bleeding. The patient is refusing any transfer for dialysis. In fact, she just recently went on hospice. I do not feel she is needing any IV fluids at this point. She is actually edematous and has a history of heart failure. We will repeat her kidney function with her hemoglobin tomorrow, more so due to needing her electrolytes monitored. 3. Hyperkalemia. She has been on potassium replacement, this was stopped. It could also be worsened by renal failure. It is not high enough to indicate any acute treatments we will follow it. 4. Hypomagnesemia. I am going to recheck again and avoid treatment due to her renal failure. It is only 1.6. 5. Chronic diastolic heart failure, last EF is reported to be over 60%. I am holding her diuretics for now, but they can be restarted if needed. 6. Abnormal UA with bacteriuria. Culture sent. Currently, patient is having no symptoms other than incontinence. She has allergies to amoxicillin and Cipro. I would like to avoid Bactrim given renal failure. Consider Monurol if available. However, given lack of symptoms, we will await the culture. 7. Chronic obstructive pulmonary disease, severe, on hospice. She will continue her oxygen. We will switch her scheduled morphine over to IV Dilaudid scheduled for respiratory distress and also to help with chronic pain. We will continue her home nebulizers. 8. Coronary artery disease. I am going to hold her Plavix and aspirin due to gastrointestinal bleeding. 9. Depression. She will continue Zoloft. 10.Reported history of atrial fibrillation, seems to be in sinus now. She has Toprol that will continue daily. 11.Restless legs syndrome. She will continue her home medications for that, Sinemet and Requip. 12.Chronic back pain due to psoriatic arthritis. She will continue oxycodone p.r.n. and scheduled and p.r.n. Dilaudid. I will try to avoid morphine given her severe renal impairment. 13.Diabetes type 2. We will continue with q.i.d. Accu-Cheks just in the initial 24 hours and schedule just subcu insulin lower doses. Make adjustments as needed. Just trying to avoid any severe hyperglycemia. Her diet, she will be allowed to eat, which she wants. 14. Palliative care PLAN: At this point, the patient is admitted for acute cares to be under palliative care. She is agreeable to this as she has recently been started on hospice. The goals of care for her are comfort. The patient will be treated with the IV Protonix. We will do some lab monitoring just to help prognosticate things. If she worsens, she will remain in the hospital for end of life cares. If she improves and stabilizes, she can hopefully go home with family and hospice. Dr. Mendoza is aware of this patient's admission and plans to resume care on Wednesday. No DVT prophylaxis ordered due to end of life palliative cares and a Spencer will be placed also for the patient's comfort. Dr. Duque also updated of the admission. It is anticipated that the patient could potentially pass on of her current illness MKA: 08/04/2019 18:09:13 MODL: 08/05/2019 00:09:45 /[id number] MTDD
[2019-08-05] MEDS ORDERED: Levothyroxine 100 MCG Tab PO SCH (07:00)
[2019-08-05] MEDS ORDERED: Sertraline 100 MG Tab PO SCH (08:00)
[2019-08-05] MEDS ORDERED: Loratadine 10 MG Tab PO SCH (08:00)
[2019-08-05] MEDS ORDERED: Metoprolol Succinate 25 MG Tab.ER PO SCH (08:00)
--- NOTE | 2019-08-05 17:44 | PCM.DCSUM1 ---
Discharge Summary - Hospital Course Free Text/Narrative:: Patient admitted with an acute GI bleed and renal failure for palliative cares. She refused Transfer to [place] for EGD and dialysis. Her PCP was contacted whom was out of town and agreed to have her admitted under my service for palliative cares given the fact a few days ago she went on hospice for her severe COPD. She has multiple other comorbidities including CAD and CHF. Chronic pain from psoriatic arthritis, obesity, CKD 4, chronic GI bleeds, a. fib , MIKAELA. Patient was treated with IV protonix and given pain control with IV dilaudid given her renal failure. She had no further vomiting of coffee ground emesis. UA was positive done for incontinence but she had no other symptoms and no fevers so no ABX were started. Goals of care were comfort this was discussed with the patient who was agreeable to that. - Discharge Data Discharge Date: 08/05/19 Discharge Disposition: 20 Condition: - Referral to Home Health Primary Care Physician: Vita Mendoza DO - Patient Summary/Data Consults: Consultations 08/04/19 16:18 Consult to Case Management/District Court Reporter [CONS] Routine - Discharge Plan Home Medications: Home Meds Clopidogrel Bisulfate [Clopidogrel] 75 mg PO DAILY 10/16/13 [History] Pantoprazole Sodium 40 mg PO DAILY 10/16/13 [History] Methyl Salicylate/Menthol [Muscle Rub Cream] 1 applic TOP QID PRN 04/25/14 [ History] Nitroglycerin [Nitrostat] 0.4 mg SL ASDIRECTED PRN #0 tab.sl 02/27/15 [Rx] Sertraline [Zoloft] 100 mg PO DAILY tablet 02/27/15 [Rx] Aspirin [Halfprin] 81 mg PO DAILY 08/09/15 [History] Cholecalciferol (Vitamin D3) [Vitamin D3] 2,000 unit PO DAILY 08/09/15 [History] rOPINIRole [Requip] 0.5 mg PO TID 08/09/15 [History] Albuterol/Ipratropium [DuoNeb 3.0-0.5 MG/3 ML] 3 ml NEB Q4HR PRN 08/13/16 [ History] Calcium Carbonate [Tums] 500 mg PO TID PRN 08/13/16 [History] Loratadine [Claritin] 10 mg PO DAILY 08/13/16 [History] Metolazone [Zaroxolyn] 5 mg PO Q72H 08/13/16 [History] Carbidopa/Levodopa [Sinemet 25-100 mg Tablet] 1 tab PO BEDTIME 08/14/16 [History ] Hydroxychloroquine Sulfate [Plaquenil] 200 mg PO BIDMEALS 08/14/16 [History] Febuxostat [Uloric] 40 mg PO DAILY #30 tablet 08/22/16 [Rx] Albuterol [Ventolin HFA] 2 puff INH Q6H PRN 05/11/17 [History] Iron Polysaccharides Complex [Ferrex 150] 150 mg PO DAILY 05/11/17 [History] Levothyroxine [Synthroid] 100 mcg PO DAILY 05/11/17 [History] Acetaminophen 650 mg PO Q4H PRN MDD 4000 mg per day 12/14/17 [History] Budesonide [Pulmicort] 2 ml NEB BID 12/14/17 [History] Docusate Sodium/Sennosides [Senokot-S] 1 tab PO DAILY PRN 12/14/17 [History] Insuln Asp Prot/Insulin Aspart [NovoLOG Mix 70-30] 6 unit SQ BIDMEALS 12/14/17 [ History] Nystatin [Nystatin Crm] 1 applic TOP ASDIRECTED PRN 12/15/17 [History] Betamethasone/Clotrimazole [Lotrisone] 1 applic TOP BID PRN 01/03/19 [History] Formoterol Fumarate [Perforomist] 2 ml INH BID 01/03/19 [History] Insuln Asp Prot/Insulin Aspart [NovoLOG Mix 70-30] 4 unit SQ BID PRN 01/03/19 [ History] Metoprolol Succinate [Toprol XL] 25 mg PO DAILY 01/03/19 [History] Potassium Chloride [Klor-Con 10] 10 meq PO DAILY 01/03/19 [History] Torsemide 20 mg PO DAILY 01/03/19 [History] polyethylene glycoL 3350 [MiraLAX] 17 g PO DAILY PRN 01/03/19 [History] oxyCODONE 10 mg PO BID tablet 01/12/19 [Rx] Forms: ED Department Discharge Referrals: Vita Mendoza DO [Primary Care Provider] - - Discharge Summary/Plan Comment DC Time >30 min.: No - Patient Data Vitals - Most Recent: Last Vital Signs Temp 98 F 08/04/19 22:00 Pulse 84 08/04/19 22:00 Resp 20 08/04/19 22:00 BP 127/38 L 08/04/19 22:00 Pulse Ox 95 08/04/19 22:00 Weight - Most Recent: 107.456 kg Lab Results - Last 24 hrs: Laboratory Results - last 24 hr 08/04/19 Range/Units 19:32 POC Glucose 139 H (74-106) mg/dL YONG Results - Last 24 hrs: Microbiology 08/04/19 16:30 Urine Culture - Preliminary Urine, Spencer Cath (Indwelling) Gram Negative Rods Med Orders - Current: Current Medications Discontinued Medications Acetaminophen (Tylenol) 650 mg PO Q4H PRN PRN Reason: Pain Albuterol (Ventolin Hfa) 0 gm INH Q6H PRN PRN Reason: Shortness of Breath Albuterol/Ipratropium (Duoneb 3.0-0.5 Mg/3 Ml) 3 ml NEB Q4HR PRN PRN Reason: Shortness of Breath Arformoterol Tartrate (Brovana) 15 mcg INH BIDRT [facility] Last Admin: 08/04/19 19:40 Dose: 15 mcg Budesonide (Pulmicort) 0.5 mg NEB BIDRT [facility] Last Admin: 08/04/19 19:40 Dose: 0.5 mg Carbidopa/Levodopa (Sinemet 25-100 Mg) 1 tab PO BEDTIME [facility] Last Admin: 08/04/19 19:40 Dose: 1 tab Hydromorphone HCl (Dilaudid) 0.5 mg IV Q2H PRN PRN Reason: Pain Last Admin: 08/04/19 19:39 Dose: 0.5 mg Hydromorphone HCl (Dilaudid) 0.5 mg IV Q8H [facility] Last Admin: 08/05/19 00:00 Dose: 0.5 mg Hydroxychloroquine Sulfate (Plaquenil) 200 mg PO BIDMEALS [facility] Last Admin: 08/04/19 18:02 Dose: 200 mg Insulin Lispro Protam/Lispro Human (Humalog Mix 75-25) 6 unit SUBCUT BIDMEALS [facility] Insulin Lispro Protam/Lispro Human (Humalog Mix 75-25) 4 unit SUBCUT TIDMEALS [facility] Last Admin: 08/04/19 18:03 Dose: 4 unit Levothyroxine Sodium (Synthroid) 100 mcg PO ACBREAKFAST [facility] Loratadine (Claritin) 10 mg PO DAILY [facility] Metoprolol Succinate (Toprol Xl) 25 mg PO DAILY [facility] Nitroglycerin (Nitrostat) 0.4 mg SL ASDIRECTED PRN PRN Reason: Chest Pain Nystatin (Nystatin Crm) gm TOP ASDIRECTED PRN PRN Reason: Rash Ondansetron HCl (Zofran Odt) 4 mg PO Q4H PRN PRN Reason: nausea, able to take PO Ondansetron HCl (Zofran) 4 mg IV Q4H PRN PRN Reason: Nausea/Vomiting Last Admin: 08/04/19 19:40 Dose: 4 mg Oxycodone HCl (Oxycodone) 5 mg PO Q4H PRN PRN Reason: Pain (moderate 4-6) Pantoprazole Sodium (Protonix Iv) 40 mg IVPUSH Q12H [facility] Last Admin: 08/04/19 16:44 Dose: 40 mg Polyethylene Glycol (Miralax) 17 gm PO DAILY PRN PRN Reason: Constipation Ropinirole HCl (Requip) 0.5 mg PO TID [facility] Last Admin: 08/04/19 19:40 Dose: 0.5 mg Senna/Docusate Sodium (Senna Plus) 1 tab PO DAILY PRN PRN Reason: CONSTIPATION Sertraline HCl (Zoloft) 100 mg PO DAILY [facility] Sodium Chloride (Saline Flush) 10 ml FLUSH ASDIRECTED PRN PRN Reason: Keep Vein Open Last Admin: 08/05/19 00:01 Dose: 10 ml
== END 2019-08-05 01:50 | disposition expired | DRG 951 ==
LOC: VM.ED 11:36 → VM.MS 14:03
PROVIDERS: ADMIT Internal Medicine; ATTEND Internal Medicine
DX: Z51.5 Encounter for palliative care (principal); K92.2 Gastrointestinal hemorrhage, unspecified; N18.4 Chronic kidney disease, stage 4 (severe); J96.10 Chronic respiratory failure, unspecified whether with hypoxia or hypercapnia; I50.32 Chronic diastolic (congestive) heart failure; N17.9 Acute kidney failure, unspecified; I25.10 Atherosclerotic heart disease of native coronary artery without angina pectoris; L40.50 Arthropathic psoriasis, unspecified; E66.9 Obesity, unspecified; G47.33 Obstructive sleep apnea (adult) (pediatric); J44.9 Chronic obstructive pulmonary disease, unspecified; R32 Unspecified urinary incontinence; I48.0 Paroxysmal atrial fibrillation; I27.20 Pulmonary hypertension, unspecified; G89.4 Chronic pain syndrome; M10.9 Gout, unspecified; F32.9 Major depressive disorder, single episode, unspecified; D64.9 Anemia, unspecified; E03.9 Hypothyroidism, unspecified; E87.5 Hyperkalemia; E83.42 Hypomagnesemia; H91.90 Unspecified hearing loss, unspecified ear; E78.00 Pure hypercholesterolemia, unspecified; K21.9 Gastro-esophageal reflux disease without esophagitis; G43.909 Migraine, unspecified, not intractable, without status migrainosus; D50.9 Iron deficiency anemia, unspecified; Z79.02 Long term (current) use of antithrombotics/antiplatelets; Z79.899 Other long term (current) drug therapy; Z79.82 Long term (current) use of aspirin; Z99.81 Dependence on supplemental oxygen; Z90.49 Acquired absence of other specified parts of digestive tract; Z90.710 Acquired absence of both cervix and uterus; Z95.5 Presence of coronary angioplasty implant and graft; Z88.1 Allergy status to other antibiotic agents; Z88.8 Allergy status to other drugs, medicaments and biological substances; Z88.5 Allergy status to narcotic agent; Z88.6 Allergy status to analgesic agent; Z79.4 Long term (current) use of insulin; Z79.890 Hormone replacement therapy
CPT/HCPCS: 36415; 74019; 80053; 81001; 82150; 82962; 83690; 83735; 84100; 84443; 85025; 85610; 86140; 87086; 87088; 87186; 94640; 99284-GF; 99285-25; A9270-GY; C9113; J1170; J1815-GY; J2405